=== PATIENT | male | born 1950 | race Caucasian/White ===

== ENCOUNTER 2017-01-09 14:47 | Inpatient (IN) ==
[2017-01-09] MEDS ORDERED: HALOPERIDOL 0.5 MG TABLET PO PRN (16:14)
[2017-01-09] MEDS ORDERED: HALOPERIDOL 5 MG/ML INJECTION IM PRN (16:14)
--- OUTSIDE RECORDS SUMMARY | 2017-01-09 20:59 | External Medical Summary | Referral Summary ---
:1950 Author Organization [facility] Address [address] [place] [address] Care Team Providers Name Role Phone [facility] Primary Care Physician Unavailable Encounter [facility] [id number] Date(s): 06/22/16 - 06/22/16 [facility] [address] [place] [address] Discharge Disposition: 01-Home or Self Care Attending Physician: Casimiro Oneil JR, MD Admitting Physician: Casimiro Oneil JR, MD Vital Signs No data available for this section Problem List No data available for this section Allergies, Adverse Reactions, Alerts Substance Reaction Severity Status lithium Adverse Reaction Active penicillin RASH Active Medications No data available for this section Results No data available for this section Immunizations No data available for this section Procedures No data available for this section Social History No data available for this section Assessment and Plan No data available for this section
--- NOTE | 2017-01-09 21:59 | 24 Hour Neuropsychiatic Eval ---
Date of Admission: 01/09/17 14:47 Chief complaint: Suicide ideation History of Present Illness: Patient is 66-year-old, , who was transferred from [facility] for suicide ideation with plan to overdose on his medication. Patient has history of Bipolar disorder and reports depressive symptoms in the last 2 weeks. He endorses depressed mood, decrease appetite, low energy, poor concentration and recurrent suicide ideation with plan to overdose. He was recently admitted to the CT for elevated ammonia and suicide ideation. Patient was stabilized medically prior to transfer and he was seen today to alert and oriented to time, place,person and situation. Patient reports that he stays at home all and has been really bored with his life. There is associated anxiety and always feels on the edge. He had previous suicide attempt about 15 years ago which require hospitalization at the [facility] for months. He reports past hypomanic symptoms which he describes periods of impulsively buying things he does not need with protracted insomnia. Patient reports being hospitalized during these episodes. Patient reports that he has had trials of various medications including [place]. He is currently on Abilify 15mg daily, Sertraline 200mg daily and Wellbutrin 150mg BID . Patient denies psychotic symptom and no symptom suggestive of kings or hypomania. Substance: Denies use of alcohol or any illicit drug Past Psych History: Patient was once admitted to [facility] for months. Past Medical History: Liver Cirrhosis Past Surgical History: Appendectomy and Gallbladder surgery Family History: He reports that his mother committed suicide Social History: Patient lives in apartment and retired from the [email or web address] honorably . He worked after his [employer] and currently lives in apartment alone. Patient has been divorce and has 2 daughters. Depression: Increased Anxiety, Crying Spells, Increased Fatigue, Loss of Energy , Insomnia, Difficulty Sleeping, Recurrent Thoughts of or Suicide, Difficulty Concentrating, Changes in Appetite, Hopelessness, Unhappiness Anxiety: Sense of Impending Doom [facility] Patient Stated Medical History Sleep Apnea Yes Diabetes Mellitus Type 2 Yes Cirrhosis Yes Depression Yes Family History: Mother committed suicide - Social History Smoking status: Never smoker Substance use type: does not use Alcohol intake: never (last drink was in 1974) Housing: apartment Household members: none service: Yes (retired from the [employer]) Current occupational status: retired Current residence: Apartment/Private Home Review of Systems - EENMT Eyes: Absent: blurry vision Ears: Absent: tinnitus Nose: Absent: nosebleeds - Cardiovascular Vascular: Present: pedal edema - Respiratory Respiratory: Absent: dyspnea on exertion - Gastrointestinal Gastrointestinal: Present: constipation, diarrhea - Genitourinary Genitourinary: Absent: dysuria - Musculoskeletal Musculoskeletal: Present: back pain, myalgias - Psychiatric Psychiatric: Present: abnormal sleep pattern, anhedonia, anxiety, depression, difficulty concentrating, hopelessness, suicidal ideation - Endocrine Endocrine: Absent: polyphagia - Hematologic/Lymphatic Hematologic/Lymphatic: Absent: easy bruising - Allergic/Immunologic Allergic/Immunologic: Absent: itchy eyes Mental Status Exam Vitals: Last Vital Signs Temp 97.6 F 01/09/17 20:11 Pulse 74 01/09/17 20:11 Resp 20 01/09/17 20:11 BP 115/57 01/09/17 20:11 Pulse Ox 97 01/09/17 20:11 Height: 1.88 m Weight: 138.5 kg - Mental Status Exam Muscle Strength/Tone: Weak Dressing: Casual Grooming: Poor Attitude: Cooperative Motor Activity: Retardation Eye Contact: Fair Speech: Slowed Volume: Soft Rhythm: Appropriate Rhythm Orientation: Oriented X4 Mood: Depressed Affect: Depressed Rate of Thoughts: Delayed Thought Organization: Organized Associations: Intact Abstract Reasoning: Intact, able to abstract Computation: Intact Thought Content: Helplessness, Worthlessness Perception/Psychotic: Perception Normal Language: Naming Intact Fund of Knowledge: Jose aware current events Memory: Grossly Intact Suicidal Ideation: Persistent, Plan Homicidal Ideation: None Insight: Fair Judgement: Poor Impulse Control: Poor - Laboratory Laboratory Results - last 24 hr 01/09/17 16:46 Ammonia 116 H Assessment and Plan (1) Bipolar disorder Qualifiers: Current bipolar episode type: depressed Current episode severity: severe Psychotic features: without psychotic features Current visit: Yes Status: Acute Admit Patient to [facility] Consult Medical team Obtain Ammonia level Re start home medications
[2017-01-09] MEDS: TRAMADOL 50 MG TABLET PO PRN (22:28)
[2017-01-09] MEDS: HYDROCORTISONE 1% CREAM 28.35gm TOP PRN (22:36)
[2017-01-10] MEDS: PANTOPRAZOLE 40 MG TABLET PO SCH (06:30)
[2017-01-10] MEDS ORDERED: MELOXICAM 15 MG TABLET PO SCH (09:00)
--- NOTE | 2017-01-10 09:03 | Consult Note ---
<Jaimee Gibson - Last Filed: 01/10/17 11:11> Consult Information - Data of Consult Consult date: 01/10/17 Requesting Physician: Nahid Escudero MD Primary Care Provider: Charlene Cohn MD Family Provider: Charlene Cohn MD - Consult Narrative Reason for consult: medical management of cirrhosis, encephalopathy History of present illness: The patient is a 66 y.o. [employer] who lives in [place] by himself. He was hospitalized in the [facility] January 05- due to suicidal ideation (plan to OD on medication) and elevated ammonia related to his liver cirrhosis. He has a bipolar II diagnosis and has had suicide attempts in 2011 and 2013. He has support of his daughters who both live within 2.5 blocks of him. While hospitalized at the [facility], his ammonia trended from 148-93. Basline ~80. He is taking lactulose and rifaximin. Last EGD of 2014 showed no esophageal varices. Liver ultrasound 01/05/17 showed heterogenous echotexture without significant ascites. He had echocardiogram 12/02 showing no pulmonary HTN with ejection fraction of 55-60. His blood counts were followed due to his pancytopenia thought to be secondary to hepatic cirrhosis vs medication side effects. He has chronic venous stasis and has had ongoing issues with stasis ulcer to left lower extremity. Currently having no problems. Once his medical condition was stabilized, he was transferred to the [facility] for continued psychiatric care given his ongoing suicidal ideation. PFSH Obstructive Sleep Apnea Diabetes Mellitus Type 2 Cirrhosis ([place]ANTE) Depression chronic venous stasis Surgical History: L knee surgery. appendectomy. cholecystectomy Family History: FH noncontributory. Mother committed suicide - Social History Smoking status: Never smoker Substance use type: does not use Alcohol intake frequency: does not drink Housing: house Household members: none service: Yes ([employer] [phone] (stationed in [employer] [place] [facility] [place] Current occupational status: retired Does patient use chewing tobacco?: No Current residence: Apartment/Private Home Review of Systems All systems: reviewed and no additional remarkable complaints except as stated - Constitutional Constitutional: Present: fatigue - Cardiovascular Vascular: Present: pedal edema (chronic) - Genitourinary Genitourinary: Present: nocturia, urinary urgency - Musculoskeletal Musculoskeletal: Present: back pain, myalgias - Integumentary/Breasts Integumentary: Present: change in pigmentation (left lower leg) - Psychiatric Psychiatric: Present: abnormal sleep pattern, anhedonia, anxiety, depression, difficulty concentrating, hopelessness, suicidal ideation Medications Home Medications Medication Instructions Recorded Confirmed Type Abilify 15 mg PO DAILY 01/09/17 01/09/17 History Lactulose 30 ml PO 5XD 01/09/17 01/09/17 History Meloxicam 15 mg PO DAILY 01/09/17 01/09/17 History Pantoprazole Tab [Protonix Tab] 1 tab PO ACB 01/09/17 01/09/17 History Rifaximin 550 mg PO BID 01/09/17 01/09/17 History Sertraline 200 mg PO DAILY 01/09/17 01/09/17 History Tramadol [Ultram] 50 mg PO TID PRN 01/09/17 01/09/17 History Vit D3/Folic Acid/B2/B6/B12 1,000 mg PO DAILY 01/09/17 History buPROPion HCl [Bupropion HCl Sr] 150 mg PO QMWFSU 01/09/17 01/09/17 History Allergies Allergy/AdvReac Type Severity Reaction Status Date / Time gabapentin Allergy Verified 01/09/17 18:44 lithium Allergy Verified 01/09/17 18:44 Penicillins Allergy Verified 01/09/17 18:44 ibuprofen AdvReac Verified 01/09/17 18:44 Exam Vital Signs: Temperature 97.6 F 01/09/17 20:11 Pulse Rate 74 01/09/17 20:11 Respiratory Rate 20 01/09/17 20:11 Blood Pressure 115/57 01/09/17 20:11 Pulse Oximetry 97 01/09/17 20:11 Oxygen Delivery Method Room Air Height: 1.88 m Weight: 138.346 kg Body Mass Index: 39.2 - Constitutional Present: no acute distress, well nourished, well developed - Routine HEENT Exam Head: Present: normocephalic, atraumatic Eye: Present: EOMI, conjunctivae pink ENT: Present: mucous membranes moist. Absent: dentition normal (edentulous) - Routine Neck Exam Present: supple. Absent: lymphadenopathy - Routine Respiratory Exam Present: CTA bilaterally. Absent: wheezes - Routine Cardiovascular Exam Present: RRR, S1, S2. Absent: murmur - Routine Abdominal Exam Present: soft, normoactive bowel sounds, tenderness (mild-diffuse), non distended - Routine Extremities Exam Present: edema (trace- 1+ bilateral), normal capillary refill - Routine Skin Exam Present: dry, warm, wounds (has chronic pigmentation changes and erythema to RLE. No active ulcerations noted to lower leg, but has some scabbed wounds. No sign of infection.) - Routine Neurological Exam Present: alert, oriented X3, CN II-XII intact - Routine Psychiatric Exam Present: normal affect Assessment and Plan (1) Encephalopathy Current visit: Yes Status: Acute (2) Cirrhosis of liver not due to alcohol Current visit: Yes Status: Acute acute on chronic Assessment and Plan: ASSESSMENT: acute encephalopathy hepatic cirrhosis ([place]) obstructve sleep apnea bipolar II with suicidal ideation chronic venous stasis pancytopenia secondary to cirrhosis vs meds PLAN: acute encephalopathy secondary to hepatic cirrhosis Check CBC and CMP today. hepatic cirrhosis with elevated ammonia Ammonia level is 116 today. He came to us on lactulose and rifaximin. Will discuss with attending to determine if he needs to continue on both meds. Will follow LFT's Obstructive Sleep Apnea Uses CPAP at home. Will monitor. Patient may require O2 at night if he becomes hypoxic Bipolar II with suicidal ideation Psych to follow. May need to discuss reducing/changing sertraline as use is not recommended in moderate to severe liver impairment chronic venous stasis Wound team has been consulted for evaluation Consider compression stockings if needed pancytopenia secondary to cirrhosis vs meds Will monitor with CBC Encourage patient to participate in unit activities and provide a safe environment. The hospitalist team will continue to follow patient for medical management during patient's stay At time of discharge, medical care will return to patients primary care provider at the [facility]. Hospital Course Summary Disclaimer: The visit summary below is not to be considered part of the above Progress Note. Sepsis Assessment - Evaluation Sepsis screening result: No Definite Risk <Perla Benavides - Last Filed: 01/10/17 21:23> Consult Information - Data of Consult Requesting Physician: Nahid Escudero MD Primary Care Provider: Charlene Cohn MD Family Provider: Charlene Cohn MD [facility] Patient Stated Medical History Sleep Apnea Yes Diabetes Mellitus Type 2 Yes Cirrhosis Yes Depression Yes Exam Vital Signs: Temperature 97.3 F 01/10/17 19:51 Pulse Rate 61 01/10/17 19:51 Respiratory Rate 22 01/10/17 19:51 Blood Pressure 123/47 01/10/17 19:51 Pulse Oximetry 99 01/10/17 19:51 Oxygen Delivery Method Room Air Height: 1.88 m Weight: 138.346 kg Results - Labs CBC & Chem 7: 01/10/17 13:19 01/10/17 11:57 Assessment and Plan (1) Bipolar disorder Problem details: severe depression/suicidal ideation Current visit: Yes Status: Acute (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 I reviewed the chart, the patient's history, and the [facility]ERING [facility]/PA's documented findings as above. We discussed and formulated the assessment and plan as above with additions as below: Mr. Arndt was transferred from the [facility] as noted. He reports occasional lightheadedness when standing which he attributes to chronic lactulose use. He reports having a couple of bowel movements daily and abdominal bloating which is maybe a little greater today than normally. He denied dyspnea and reports his appetite is very good. Patient is slightly withdrawn but responds appropriately to questions. He is oriented. No scleral icterus present, minor right facial droop present but appears to be positional as when patient holds his head upright no droop evident. Extraocular muscles intact, tongue midline. No tremor present, motor tone normal. Power within normal limits proximally/distally upper and lower extremities. Sensation intact to light touch 4 extremities. Elevated ammonia level noted-will clarify with PCP while level runs chronically but patient is not overtly encephalopathic. Monitor bowel movements-should be having approximately 3 bowel movements daily. Continue rifaximin and lactulose. Will review outpatient labs to determine when A1c last evaluated. Provide safe environment for patient while psychiatric medications modified. Hospital Course Summary Disclaimer: The visit summary below is not to be considered part of the above Progress Note. Addendum entered and electronically signed by Jaimee Gibson PA 01/10/17 14:17 : Reviewed labs obtained today. Patient continues to be pancytopenic. The calculated ANC is 992 - consistent with moderate neutropenia. WBC on 01/06 was 1.2, and on 01/07 was on 1.1 . Did review old records. This is a chronic process for this patient. Patient sees Dr. Aakash Armendariz. Last visit was 09/19/16.
[2017-01-10] MEDS: ARIPiprazole 15 MG TABLET PO SCH (10:45)
[2017-01-10] MEDS: LACTULOSE 20 GM/30 ML ORAL LIQUID PO SCH ×5 (10:45→20:36)
[2017-01-10] MEDS: SERTRALINE 100 MG TABLET PO SCH (10:45)
[2017-01-10] MEDS: RIFAXIMIN 550 MG TABLET PO SCH ×2 (10:46→20:37)
[2017-01-10 10:52] VITALS: BMI 39.2
[2017-01-10] MEDS ORDERED: BuPROPion SR 150mg (12HR) TABLET PO SCH (12:00)
--- NOTE | 2017-01-10 21:30 | Neuropsych Progress Note ---
[place] Subjective Date: 01/10/17 - Sujective/Severity of Illness Medications: Aripiprazole (Abilify) 15 mg PO DAILY [facility] Last Admin: 01/10/17 10:45 Dose: 15 mg Bupropion HCl (Wellbutrin Sr) 150 mg PO QMWFSU [facility] Last Admin: 01/10/17 11:50 Dose: 150 mg Haloperidol (Haldol) 0.5 mg PO Q6H PRN PRN Reason: Extreme agitation Haloperidol Lactate (Haldol) 0.5 mg IM Q6H PRN PRN Reason: Extreme agitation Hydrocortisone (Cortizone-10 Cream) 1 applic TOP TID PRN PRN Reason: Rash Last Admin: 01/09/17 22:36 Dose: 1 applic Lactulose (Lactulose) 20 gm PO 5XD [facility] Last Admin: 01/10/17 20:36 Dose: 20 gm Lorazepam (Ativan) 0.5 mg PO Q6H PRN PRN Reason: Extreme agitation Lorazepam (Ativan Inj) 0.5 mg IM Q6H PRN PRN Reason: Extreme agitation Meloxicam (Mobic) 15 mg PO WB [facility] Pantoprazole Sodium (Protonix Tab) 40 mg PO ACB [facility] Last Admin: 01/10/17 06:30 Dose: 40 mg Rifaximin (Xifaxan) 550 mg PO BID [facility] Last Admin: 01/10/17 20:37 Dose: 550 mg Sertraline HCl (Zoloft) 200 mg PO DAILY [facility] Last Admin: 01/10/17 10:45 Dose: 200 mg Tramadol HCl (Ultram) 50 mg PO TID PRN PRN Reason: Moderate pain Last Admin: 01/09/17 22:28 Dose: 50 mg Subjective: Patient is a 66-year-old, who has history of Bipolar 2 disorder and liver cirrhosis . [facility] with suicide ideation with plan to overdose on his medication. His medications on presentation included Abilify 15mg, Wellbutrin 150mg. Patient seen today and he reports that he continues to be depressed and feels helpless. He was able to get some sleep yesterday but continue to feel mentally tired. He denies suicide ideation, intent or plan to hurt himself and he feels safe on the unit. Sleep: 6 hours appetite: good Medication compliance: good. Adverse effect: none Visit: Patient was visited by the case management specialist from the [facility] who reported to staff that patient's apartment was filthy and he was supposed to have enough income for someone to clean his apartment. The plans to look into this and ascertain if there needs to be a report to [facility]. Start Time: 18:40 Stop Time: 19:00 Mental Status Exam Vitals: Last Vital Signs Temp 97.3 F 01/10/17 19:51 Pulse 61 01/10/17 19:51 Resp 22 01/10/17 19:51 BP 123/47 01/10/17 19:51 Pulse Ox 99 01/10/17 19:51 Height: 1.88 m Weight: 138.346 kg - Mental Status Exam Muscle Strength/Tone: Weak Dressing: Casual Grooming: Poor Attitude: Cooperative Motor Activity: Retardation Eye Contact: Fair Speech: Slowed Volume: Soft Rhythm: Appropriate Rhythm Orientation: Oriented X4 Mood: Depressed Rate of Thoughts: Delayed Thought Organization: Organized Associations: Intact Abstract Reasoning: Intact, able to abstract Computation: Intact Thought Content: Helplessness, Worthlessness Perception/Psychotic: Perception Normal Language: Naming Intact Fund of Knowledge: Jose aware current events Memory: Grossly Intact Suicidal Ideation: Intermittent Homicidal Ideation: None Insight: Fair Judgement: Poor Impulse Control: Poor - Laboratory Result Diagrams: 01/10/17 13:19 01/10/17 11:57 Laboratory Results - last 24 hr 01/10/17 01/10/17 11:57 13:19 WBC 1.6 L* RBC 3.68 L Hgb 10.6 L Hct 34.4 L MCV 93.5 MCH 28.8 MCHC 30.8 L RDW Std Deviation 61.4 H Plt Count 40 L MPV 11.1 Immature Gran % (Auto) Not performed Neut % (Auto) Not performed Lymph % (Auto) Not performed [place] % (Auto) Not performed Eos % (Auto) Not performed Baso % (Auto) Not performed Neut # Not performed Lymph # Not performed [place] # Not performed Eos # Not performed Baso # Not performed Abs Immat Gran (auto) Not performed Neutrophils % (Manual) 62.0 Lymphocytes % (Manual) 36.0 Eosinophils % (Manual) 2.0 Neutrophils # (Manual) 1.0 L Lymphocytes # (Manual) 0.6 L Eosinophils # (Manual) 0.0 RBC Morph Comment Normal Turbidity < 20 Sodium 145 H Potassium 4.0 Chloride 111 H Carbon Dioxide 25 Anion Gap 9 BUN 18.0 Creatinine 1.0 GFR Calculation 75 BUN/Creatinine Ratio 18 Glucose 161 H Calculated Osmolality 284 H Calcium 9.7 Total Bilirubin 1.30 Icterus Index < 2 AST 45 ALT 38 Alkaline Phosphatase 84 Total Protein 6.6 Albumin 3.8 Globulin 2.8 Albumin/Globulin Ratio 1.4 Specimen Hemolysis 30 H Specimen Comment Lab to recollect Tests Not Done H63 - cbc Reason Tests Not Done Clotted specimen Assessment and Plan (1) Bipolar disorder Qualifiers: Qualified Code(s): F31.4 - Bipolar disorder, current episode depressed, severe, without psychotic features Problem details: severe depression/suicidal ideation Current visit: Yes Status: Acute Hospital Course Summary Disclaimer: The visit summary below is not to be considered part of the above Progress Note. 1. Increase dose of Bupropion to target low energy and poor motivation. Will consider adding Lamotrogine to his medication if he continues to be symptomatic
[2017-01-11] MEDS: LORazepam 0.5 MG TABLET PO PRN (01:51)
[2017-01-11] MEDS: PANTOPRAZOLE 40 MG TABLET PO SCH (08:24)
[2017-01-11] MEDS: MELOXICAM 15 MG TABLET PO SCH (08:25)
[2017-01-11] MEDS: ARIPiprazole 15 MG TABLET PO SCH (08:25)
[2017-01-11] MEDS: LACTULOSE 20 GM/30 ML ORAL LIQUID PO SCH ×5 (08:25→20:11)
[2017-01-11] MEDS: SERTRALINE 100 MG TABLET PO SCH (08:25)
[2017-01-11] MEDS: RIFAXIMIN 550 MG TABLET PO SCH ×2 (08:38→20:14)
--- NOTE | 2017-01-11 09:26 | Wound Care Progress Note ---
Wound Center Progress Note: Saw pt on 01/10/17. Left zamarripa was of concern, at this time redness, appears pt has scratched it. No open areas, suggested Antifungal cream and A & D.
[2017-01-11] MEDS ORDERED: BuPROPion SR 150mg (12HR) TABLET PO SCH (12:00)
--- NOTE | 2017-01-11 15:07 | Progress Note ---
Subjective: Patient seen in follow-up today in the day room. Patient reports overall he feels he is doing okay. He reports he "feels safe." States he still has a lot of intrusive thoughts. He's been having good bowel movements. He has no physical complaints. Objective Vital signs: Temperature 97.0 F 01/11/17 08:00 Pulse Rate 66 01/11/17 08:00 Respiratory Rate 20 01/11/17 08:00 Blood Pressure 129/63 01/11/17 08:00 Pulse Oximetry 100 01/11/17 08:00 Oxygen Delivery Method Room Air Body Mass Index: 39.2 - Constitutional Present: no acute distress, well nourished, well developed - Routine HEENT Exam ENT: Present: mucous membranes moist - Routine Respiratory Exam Present: CTA bilaterally. Absent: wheezes - Routine Cardiovascular Exam Present: RRR, S1, S2. Absent: murmur - Routine Abdominal Exam Present: soft, normoactive bowel sounds, tenderness (right upper quadrant-mild) , non distended - Routine Extremities Exam Present: no edema, normal capillary refill - Routine Skin Exam Present: dry, warm - Routine Neurological Exam Present: alert, CN II-XII intact, moving all extremities, normal tone, normal speech. Absent: motor deficit, altered mental status, asterixis - Routine Lymphatic Exam Lymphatic: Absent: adenopathy - Routine Psychiatric Exam Present: normal affect, cooperative Results - Labs CBC & Chem 7: 01/10/17 13:19 01/10/17 11:57 Labs: Ammonia 105 today, down from 116 on 01/09/17. Assessment and Plan (1) Bipolar disorder Problem details: severe depression/suicidal ideation Current visit: Yes Status: Acute (2) Cirrhosis of liver not due to alcohol Current visit: Yes Status: Chronic Assessment and Plan: Assessment: Cirrhosis Pancytopenia-chronic Elevated ammonia level Diabetes mellitus type 2-diet controlled Bipolar Depression-with suicidal ideation Obstructive sleep apnea-uses CPAP Chronic venous stasis Plan: Elevated ammonia level noted-Dr. Benavides is contacting PCP to see if this is chronic for him. Will also check for last A1C result. Continue to monitor bowel movements-should be having approximately 3 bowel movements daily. Continue rifaximin and lactulose. CBC and CMP tomorrow to follow pancytopenia, renal and liver function Provide safe environment for patient while psychiatric medications modified. Sepsis Assessment - Evaluation Sepsis screening result: No Definite Risk Hospital Course Summary Disclaimer: The visit summary below is not to be considered part of the above Progress Note. Hospital Course: 01/10/17 acute encephalopathy secondary to hepatic cirrhosis Check CBC and CMP today. hepatic cirrhosis with elevated ammonia Ammonia level is 116 today. He came to us on lactulose and rifaximin. Will discuss with attending to determine if he needs to continue on both meds. Will follow LFT's Obstructive Sleep Apnea Uses CPAP at home. Will monitor. Patient may require O2 at night if he becomes hypoxic Bipolar II with suicidal ideation Psych to follow. May need to discuss reducing/changing sertraline as use is not recommended in moderate to severe liver impairment chronic venous stasis Wound team has been consulted for evaluation Consider compression stockings if needed pancytopenia secondary to cirrhosis vs meds Will monitor with CBC At time of discharge, medical care will return to patients primary care provider at the [facility] 01/11/17 15:17 Continue to monitor bowel movements-should be having approximately 3 bowel movements daily. Continue rifaximin and lactulose. CBC and CMP tomorrow to follow pancytopenia, renal and liver function ammonia level improved but still elevated
--- NOTE | 2017-01-11 19:13 | Neuropsych Progress Note ---
[facility] Subjective Date: 01/11/17 - Sujective/Severity of Illness Medications: Aripiprazole (Abilify) 15 mg PO DAILY [facility] Last Admin: 01/11/17 08:25 Dose: 15 mg Bupropion HCl (Wellbutrin Sr) 300 mg PO [id number]@1200 [facility] Haloperidol (Haldol) 0.5 mg PO Q6H PRN PRN Reason: Extreme agitation Haloperidol Lactate (Haldol) 0.5 mg IM Q6H PRN PRN Reason: Extreme agitation Hydrocortisone (Cortizone-10 Cream) 1 applic TOP TID PRN PRN Reason: Rash Last Admin: 01/09/17 22:36 Dose: 1 applic Lactulose (Lactulose) 20 gm PO 5XD [facility] Last Admin: 01/11/17 17:40 Dose: 20 gm Lorazepam (Ativan) 0.5 mg PO Q6H PRN PRN Reason: Extreme agitation Last Admin: 01/11/17 01:51 Dose: 0.5 mg Lorazepam (Ativan Inj) 0.5 mg IM Q6H PRN PRN Reason: Extreme agitation Meloxicam (Mobic) 15 mg PO WB [facility] Last Admin: 01/11/17 08:25 Dose: 15 mg Pantoprazole Sodium (Protonix Tab) 40 mg PO ACB [facility] Last Admin: 01/11/17 08:24 Dose: 40 mg Rifaximin (Xifaxan) 550 mg PO BID [facility] Last Admin: 01/11/17 08:38 Dose: 550 mg Sertraline HCl (Zoloft) 200 mg PO DAILY [facility] Last Admin: 01/11/17 08:25 Dose: 200 mg Tramadol HCl (Ultram) 50 mg PO TID PRN PRN Reason: Moderate pain Last Admin: 01/09/17 22:28 Dose: 50 mg Subjective: Pt seen and chart examined. Nursing reports pt is doing well. Sleeping well and has a good appetite. No behaviors noted. On face to face the pt states he is doing a little better. He reports his mood is improved and he states "I feel safe here". He reports he is tolerating his medication well. He reports some morbid thoughts at times but denies any S/I. Denies pain. Start Time: 18:30 Stop Time: 18:45 Mental Status Exam Vitals: Last Vital Signs Temp 96.8 F 01/11/17 16:00 Pulse 66 01/11/17 16:00 Resp 20 01/11/17 16:00 BP 127/64 01/11/17 16:00 Pulse Ox 100 01/11/17 16:00 Height: 1.88 m Weight: 138.346 kg - Mental Status Exam Muscle Strength/Tone: Weak Dressing: Casual Grooming: Poor Attitude: Cooperative Motor Activity: Retardation Eye Contact: Fair Speech: Slowed Volume: Soft Rhythm: Appropriate Rhythm Orientation: Oriented X4 Mood: Depressed Rate of Thoughts: Delayed Thought Organization: Organized Associations: Intact Abstract Reasoning: Intact, able to abstract Computation: Intact Thought Content: Helplessness, Worthlessness Perception/Psychotic: Perception Normal Language: Naming Intact Fund of Knowledge: Jose aware current events Memory: Grossly Intact Suicidal Ideation: Denies Homicidal Ideation: None Insight: Fair Judgement: Poor Impulse Control: Poor - Laboratory Result Diagrams: 01/10/17 13:19 01/10/17 11:57 Laboratory Results - last 24 hr 01/11/17 04:41 Ammonia 105 H Assessment and Plan (1) Bipolar disorder Qualifiers: Current bipolar episode type: depressed Current episode severity: severe Psychotic features: without psychotic features Problem details: severe depression/suicidal ideation Current visit: Yes Status: Acute Hospital Course Summary Disclaimer: The visit summary below is not to be considered part of the above Progress Note. Hospital Course: 01/10/17 acute encephalopathy secondary to hepatic cirrhosis Check CBC and CMP today. hepatic cirrhosis with elevated ammonia Ammonia level is 116 today. He came to us on lactulose and rifaximin. Will discuss with attending to determine if he needs to continue on both meds. Will follow LFT's Obstructive Sleep Apnea Uses CPAP at home. Will monitor. Patient may require O2 at night if he becomes hypoxic Bipolar II with suicidal ideation Psych to follow. May need to discuss reducing/changing sertraline as use is not recommended in moderate to severe liver impairment chronic venous stasis Wound team has been consulted for evaluation Consider compression stockings if needed pancytopenia secondary to cirrhosis vs meds Will monitor with CBC At time of discharge, medical care will return to patients primary care provider at the [facility] 01/11/17 15:17 Continue to monitor bowel movements-should be having approximately 3 bowel movements daily. Continue rifaximin and lactulose. CBC and CMP tomorrow to follow pancytopenia, renal and liver function ammonia level improved but still elevated 01/11/17 19:13 Continue current care
[2017-01-11] MEDS: TRAMADOL 50 MG TABLET PO PRN (20:30)
[2017-01-12] MEDS: HYDROCORTISONE 1% CREAM 28.35gm TOP PRN (00:01)
[2017-01-12] MEDS: TRAMADOL 50 MG TABLET PO PRN ×2 (02:58→17:24)
[2017-01-12] MEDS: PANTOPRAZOLE 40 MG TABLET PO SCH (06:09)
[2017-01-12] MEDS: MELOXICAM 15 MG TABLET PO SCH (08:33)
[2017-01-12] MEDS: SERTRALINE 100 MG TABLET PO SCH (08:33)
[2017-01-12] MEDS: RIFAXIMIN 550 MG TABLET PO SCH ×2 (08:33→20:16)
[2017-01-12] MEDS: LACTULOSE 20 GM/30 ML ORAL LIQUID PO SCH ×5 (08:34→20:16)
[2017-01-12] MEDS: ARIPiprazole 15 MG TABLET PO SCH (08:34)
--- NOTE | 2017-01-12 10:02 | Progress Note ---
<Fang Giron V - Last Filed: 01/12/17 09:59> Subjective: Mr Arndt is seen today in follow up while eating breakfast. He is alert and denies having any pain or shortness of breath. Denies GI complaints and he is voiding without difficulty. Bowels moved today. Afebrile and vital sings are normal Objective Vital signs: Temperature 96.9 F 01/12/17 07:16 Pulse Rate 60 01/12/17 07:16 Respiratory Rate 18 01/12/17 07:16 Blood Pressure 119/56 01/12/17 07:16 Pulse Oximetry 100 01/12/17 07:16 Oxygen Delivery Method Room Air Body Mass Index: 39.2 - Constitutional Present: no acute distress, well nourished, well developed - Routine HEENT Exam Eye: Present: EOMI, PERRL ENT: Present: mucous membranes moist, dentition normal - Routine Respiratory Exam Present: CTA bilaterally. Absent: wheezes - Routine Cardiovascular Exam Present: RRR, S1, S2. Absent: murmur - Routine Abdominal Exam Present: soft, normoactive bowel sounds, non distended. 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 Patient continues to have chronic pancytopenia. Monitor for evidence of infection, fever, tachycardia, or other concerning symptoms. Patient has been afebrile and vital signs are normal. Continue rifaximin and lactulose for chronic liver cirrhosis We'll recheck CBC and BMP periodically, next on 01/15 Provide safe environment for patient while psychiatric medications modified. Sepsis Assessment - Evaluation Sepsis screening result: No Definite Risk Hospital Course Summary Disclaimer: The visit summary below is not to be considered part of the above Progress Note. Hospital Course: 01/10/17 acute encephalopathy secondary to hepatic cirrhosis Check CBC and CMP today. hepatic cirrhosis with elevated ammonia Ammonia level is 116 today. He came to us on lactulose and rifaximin. Will discuss with attending to determine if he needs to continue on both meds. Will follow LFT's Obstructive Sleep Apnea Uses CPAP at home. Will monitor. Patient may require O2 at night if he becomes hypoxic Bipolar II with suicidal ideation Psych to follow. May need to discuss reducing/changing sertraline as use is not recommended in moderate to severe liver impairment chronic venous stasis Wound team has been consulted for evaluation Consider compression stockings if needed pancytopenia secondary to cirrhosis vs meds Will monitor with CBC At time of discharge, medical care will return to patients primary care provider at the [facility] 01/11/17 15:17 Continue to monitor bowel movements-should be having approximately 3 bowel movements daily. Continue rifaximin and lactulose. CBC and CMP tomorrow to follow pancytopenia, renal and liver function ammonia level improved but still elevated 01/11/17 19:13 Continue current care <Perla Benavides - Last Filed: 01/12/17 20:53> Objective Vital signs: Temperature 97.0 F 01/12/17 19:24 Pulse Rate 62 01/12/17 19:24 Respiratory Rate 20 01/12/17 19:24 Blood Pressure 117/58 01/12/17 19:24 Pulse Oximetry 100 01/12/17 19:24 Oxygen Delivery Method Room Air Results - Labs CBC & Chem 7: 01/12/17 05:04 01/12/17 05:04 Assessment and Plan (1) Bipolar disorder Problem details: severe depression/suicidal ideation Current visit: Yes Status: Acute (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 I reviewed the chart, the patient's history, and the [employer] ADMINISTRATOR/PA's documented findings as above. We discussed and formulated the assessment and plan as above with additions as below: Mr. Arndt was resting comfortably in the day room when seen. He was a little drowsy but indicated no concerns. He reported that his white count is generally low and usually about 3K. Review of transfer records indicate white counts have been as low as 1.1 in the past couple of months and is often under 2K. The patient was a little sedated as he was napping immediately before I arrived but otherwise was in no distress. Respirations nonlabored, responds to questions appropriately. Pancytopenia present, with marked depression of white count may need to reconsider sertraline use. No need to monitor ammonia levels repetitively. Should patient become clinically encephalopathic would increase lactulose, consider repeat ammonia level but not likely to be clinically helpful given chronic elevation. Hospital Course Summary Disclaimer: The visit summary below is not to be considered part of the above Progress Note.
[2017-01-12] MEDS: BuPROPion SR 150mg (12HR) TABLET PO SCH (11:56)
--- NOTE | 2017-01-12 17:24 | Neuropsych Progress Note ---
[place] Subjective Date: 01/12/17 - Sujective/Severity of Illness Medications: Aripiprazole (Abilify) 15 mg PO DAILY [facility] Last Admin: 01/12/17 08:34 Dose: 15 mg Bupropion HCl (Wellbutrin Sr) 300 mg PO [id number]@1200 [facility] Last Admin: 01/12/17 11:56 Dose: 300 mg Haloperidol (Haldol) 0.5 mg PO Q6H PRN PRN Reason: Extreme agitation Haloperidol Lactate (Haldol) 0.5 mg IM Q6H PRN PRN Reason: Extreme agitation Hydrocortisone (Cortizone-10 Cream) 1 applic TOP TID PRN PRN Reason: Rash Last Admin: 01/12/17 00:01 Dose: 1 applic Hydroxyzine HCl (Atarax) 50 mg PO HS [facility]PL[facility] Lactulose (Lactulose) 20 gm PO 5XD [facility] Last Admin: 01/12/17 14:52 Dose: 20 gm Lorazepam (Ativan) 0.5 mg PO Q6H PRN PRN Reason: Extreme agitation Last Admin: 01/11/17 01:51 Dose: 0.5 mg Lorazepam (Ativan Inj) 0.5 mg IM Q6H PRN PRN Reason: Extreme agitation Meloxicam (Mobic) 15 mg PO WB [facility] Last Admin: 01/12/17 08:33 Dose: 15 mg Pantoprazole Sodium (Protonix Tab) 40 mg PO ACB [facility] Last Admin: 01/12/17 06:09 Dose: 40 mg Rifaximin (Xifaxan) 550 mg PO BID [facility] Last Admin: 01/12/17 08:33 Dose: 550 mg Sertraline HCl (Zoloft) 200 mg PO DAILY [facility] Last Admin: 01/12/17 08:33 Dose: 200 mg Tramadol HCl (Ultram) 50 mg PO TID PRN PRN Reason: Moderate pain Last Admin: 01/12/17 02:58 Dose: 50 mg Subjective: Pt seen and chart examined. Nursing reports pt is doing well. Poor sleep last night. Eating well and no behaviors noted. Pt states he feels safe here but remains depressed and continues to have S/I at times. He reports he was not able to sleep last night due to racing thoughts. He reports tolerating his medication well Start Time: 16:45 Stop Time: 17:00 Mental Status Exam Vitals: Last Vital Signs Temp 96.9 F 01/12/17 16:00 Pulse 62 01/12/17 16:00 Resp 18 01/12/17 16:00 BP 115/56 01/12/17 16:00 Pulse Ox 98 01/12/17 16:00 Height: 1.88 m Weight: 138.346 kg - Mental Status Exam Muscle Strength/Tone: Weak Dressing: Casual Grooming: Poor Attitude: Cooperative Motor Activity: Retardation Eye Contact: Fair Speech: Slowed Volume: Soft Rhythm: Appropriate Rhythm Orientation: Oriented X4 Mood: Depressed Rate of Thoughts: Delayed Thought Organization: Organized Associations: Intact Abstract Reasoning: Intact, able to abstract Computation: Intact Thought Content: Helplessness, Worthlessness Perception/Psychotic: Perception Normal Language: Naming Intact Fund of Knowledge: Jose aware current events Memory: Grossly Intact Suicidal Ideation: Denies Homicidal Ideation: None Insight: Fair Judgement: Poor Impulse Control: Poor - Laboratory Result Diagrams: 01/12/17 05:04 01/12/17 05:04 Laboratory Results - last 24 hr 01/12/17 01/12/17 05:04 05:04 WBC 1.3 L* RBC 3.31 L Hgb 9.5 L Hct 30.3 L D MCV 91.5 MCH 28.7 MCHC 31.4 RDW Std Deviation 60.5 H Plt Count 44 L MPV 11.4 Immature Gran % (Auto) Not performed Neut % (Auto) Not performed Lymph % (Auto) Not performed Thomas % (Auto) Not performed Eos % (Auto) Not performed Baso % (Auto) Not performed Neut # Not performed Lymph # Not performed Thomas # Not performed Eos # Not performed Baso # Not performed Abs Immat Gran (auto) Not performed Neutrophils % (Manual) 70.0 H Lymphocytes % (Manual) 28.0 Eosinophils % (Manual) 2.0 Neutrophils # (Manual) 0.9 L Lymphocytes # (Manual) 0.4 L Eosinophils # (Manual) 0.0 Poikilocytosis 2+ Anisocytosis 2+ Tear Drop Cells 1+ Ovalocytes 2+ RBC Morph Comment Abnormal Turbidity < 20 Sodium 144 Potassium 4.4 Chloride 113 H Carbon Dioxide 25 Anion Gap 6 BUN 19.0 Creatinine 1.0 GFR Calculation 75 BUN/Creatinine Ratio 19 Glucose 109 Calculated Osmolality 280 Calcium 9.3 Total Bilirubin 1.00 Icterus Index < 2 AST 41 ALT 48 Alkaline Phosphatase 95 Total Protein 5.8 L Albumin 3.2 L Globulin 2.6 Albumin/Globulin Ratio 1.2 Specimen Hemolysis 32 H Assessment and Plan (1) Bipolar disorder Qualifiers: Current bipolar episode type: depressed Current episode severity: severe Psychotic features: without psychotic features Problem details: severe depression/suicidal ideation Current visit: Yes Status: Acute Hospital Course Summary Disclaimer: The visit summary below is not to be considered part of the above Progress Note. Hospital Course: 01/10/17 acute encephalopathy secondary to hepatic cirrhosis Check CBC and CMP today. hepatic cirrhosis with elevated ammonia Ammonia level is 116 today. He came to us on lactulose and rifaximin. Will discuss with attending to determine if he needs to continue on both meds. Will follow LFT's Obstructive Sleep Apnea Uses CPAP at home. Will monitor. Patient may require O2 at night if he becomes hypoxic Bipolar II with suicidal ideation Psych to follow. May need to discuss reducing/changing sertraline as use is not recommended in moderate to severe liver impairment chronic venous stasis Wound team has been consulted for evaluation Consider compression stockings if needed pancytopenia secondary to cirrhosis vs meds Will monitor with CBC At time of discharge, medical care will return to patients primary care provider at the [facility] 01/11/17 15:17 Continue to monitor bowel movements-should be having approximately 3 bowel movements daily. Continue rifaximin and lactulose. CBC and CMP tomorrow to follow pancytopenia, renal and liver function ammonia level improved but still elevated 01/11/17 19:13 Continue current care 01/12/17 17:23 Hydroxyzine 50mg PO QHS
[2017-01-12] MEDS: HydrOXYzine 50 MG TABLET PO SCH ×2 (20:16→23:41)
[2017-01-13] MEDS: PANTOPRAZOLE 40 MG TABLET PO SCH (05:44)
[2017-01-13] MEDS: LACTULOSE 20 GM/30 ML ORAL LIQUID PO SCH ×5 (08:33→20:21)
[2017-01-13] MEDS: ARIPiprazole 15 MG TABLET PO SCH (08:33)
[2017-01-13] MEDS: RIFAXIMIN 550 MG TABLET PO SCH ×2 (08:33→20:20)
[2017-01-13] MEDS: MELOXICAM 15 MG TABLET PO SCH (08:34)
[2017-01-13] MEDS: SERTRALINE 100 MG TABLET PO SCH (08:34)
--- NOTE | 2017-01-13 11:16 | Neuropsych Progress Note ---
[facility] Subjective Date: 01/13/17 - Sujective/Severity of Illness Medications: Aripiprazole (Abilify) 15 mg PO DAILY [facility] Last Admin: 01/13/17 08:33 Dose: 15 mg Bupropion HCl (Wellbutrin Sr) 300 mg PO [id number]@1200 [facility] Last Admin: 01/12/17 11:56 Dose: 300 mg Haloperidol (Haldol) 0.5 mg PO Q6H PRN PRN Reason: Extreme agitation Haloperidol Lactate (Haldol) 0.5 mg IM Q6H PRN PRN Reason: Extreme agitation Hydrocortisone (Cortizone-10 Cream) 1 applic TOP TID PRN PRN Reason: Rash Last Admin: 01/12/17 00:01 Dose: 1 applic Hydroxyzine HCl (Atarax) 50 mg PO HS [facility] Last Admin: 01/12/17 23:41 Dose: Not Given Lactulose (Lactulose) 20 gm PO 5XD [facility] Last Admin: 01/13/17 08:33 Dose: 20 gm Lorazepam (Ativan) 0.5 mg PO Q6H PRN PRN Reason: Extreme agitation Last Admin: 01/11/17 01:51 Dose: 0.5 mg Lorazepam (Ativan Inj) 0.5 mg IM Q6H PRN PRN Reason: Extreme agitation Meloxicam (Mobic) 15 mg PO WB [facility] Last Admin: 01/13/17 08:34 Dose: 15 mg Pantoprazole Sodium (Protonix Tab) 40 mg PO ACB [facility] Last Admin: 01/13/17 05:44 Dose: 40 mg Rifaximin (Xifaxan) 550 mg PO BID [facility] Last Admin: 01/13/17 08:33 Dose: 550 mg Sertraline HCl (Zoloft) 200 mg PO DAILY [facility] Last Admin: 01/13/17 08:34 Dose: 200 mg Tramadol HCl (Ultram) 50 mg PO TID PRN PRN Reason: Moderate pain Last Admin: 01/12/17 17:24 Dose: 50 mg Subjective: Pt seen and chart examined. Nursing reports pt is doing well. PT did not sleep well last night and has been tired today. Pt is eating well and interacts appropriately with staff and peers. On face to face the pt states he feels a little better. His mood is improved. He states he was able to fall asleep but not stay asleep. He denies any S/I at this time. Tolerating meds Start Time: 10:30 Stop Time: 10:45 Mental Status Exam Vitals: Last Vital Signs Temp 96.8 F 01/13/17 08:00 Pulse 68 01/13/17 08:00 Resp 20 01/13/17 08:00 BP 125/63 01/13/17 11:08 Pulse Ox 100 01/13/17 08:00 Height: 1.88 m Weight: 138.346 kg - Mental Status Exam Muscle Strength/Tone: Weak Dressing: Casual Grooming: Poor Attitude: Cooperative Motor Activity: Retardation Eye Contact: Fair Speech: Slowed Volume: Soft Rhythm: Appropriate Rhythm Orientation: Oriented X4 Mood: Depressed Rate of Thoughts: Delayed Thought Organization: Organized Associations: Intact Abstract Reasoning: Intact, able to abstract Computation: Intact Thought Content: Helplessness, Worthlessness Perception/Psychotic: Perception Normal Language: Naming Intact Fund of Knowledge: Jose aware current events Memory: Grossly Intact Suicidal Ideation: Denies Homicidal Ideation: None Insight: Fair Judgement: Poor Impulse Control: Poor - Laboratory Result Diagrams: 01/12/17 05:04 01/12/17 05:04 Assessment and Plan (1) Bipolar disorder Qualifiers: Current bipolar episode type: depressed Current episode severity: severe Psychotic features: without psychotic features Problem details: severe depression/suicidal ideation Current visit: Yes Status: Acute Hospital Course Summary Disclaimer: The visit summary below is not to be considered part of the above Progress Note. Hospital Course: 01/10/17 acute encephalopathy secondary to hepatic cirrhosis Check CBC and CMP today. hepatic cirrhosis with elevated ammonia Ammonia level is 116 today. He came to us on lactulose and rifaximin. Will discuss with attending to determine if he needs to continue on both meds. Will follow LFT's Obstructive Sleep Apnea Uses CPAP at home. Will monitor. Patient may require O2 at night if he becomes hypoxic Bipolar II with suicidal ideation Psych to follow. May need to discuss reducing/changing sertraline as use is not recommended in moderate to severe liver impairment chronic venous stasis Wound team has been consulted for evaluation Consider compression stockings if needed pancytopenia secondary to cirrhosis vs meds Will monitor with CBC At time of discharge, medical care will return to patients primary care provider at the [facility] 01/11/17 15:17 Continue to monitor bowel movements-should be having approximately 3 bowel movements daily. Continue rifaximin and lactulose. CBC and CMP tomorrow to follow pancytopenia, renal and liver function ammonia level improved but still elevated 01/11/17 19:13 Continue current care 01/12/17 17:23 Hydroxyzine 50mg PO QHS 01/13/17 11:16 Increase Hydroxyzine to 100mg PO QHS
[2017-01-13] MEDS: HydrOXYzine 50 MG TABLET PO SCH (22:01)
[2017-01-14] MEDS: PANTOPRAZOLE 40 MG TABLET PO SCH (05:42)
[2017-01-14] MEDS: MELOXICAM 15 MG TABLET PO SCH (09:51)
[2017-01-14] MEDS: LACTULOSE 20 GM/30 ML ORAL LIQUID PO SCH ×5 (09:52→20:08)
[2017-01-14] MEDS: RIFAXIMIN 550 MG TABLET PO SCH ×2 (09:52→20:08)
[2017-01-14] MEDS: SERTRALINE 100 MG TABLET PO SCH (09:52)
--- NOTE | 2017-01-14 11:24 | Neuropsych Progress Note ---
[place] Subjective Date: 01/14/17 - Sujective/Severity of Illness Medications: Bupropion HCl (Wellbutrin Sr) 300 mg PO SuMoWeFr@1200 [facility] Last Admin: 01/12/17 11:56 Dose: 300 mg Haloperidol (Haldol) 0.5 mg PO Q6H PRN PRN Reason: Extreme agitation Haloperidol Lactate (Haldol) 0.5 mg IM Q6H PRN PRN Reason: Extreme agitation Hydrocortisone (Cortizone-10 Cream) 1 applic TOP TID PRN PRN Reason: Rash Last Admin: 01/12/17 00:01 Dose: 1 applic Hydroxyzine HCl (Atarax) 100 mg PO HS [facility] Last Admin: 01/13/17 22:01 Dose: 100 mg Lactulose (Lactulose) 20 gm PO 5XD [facility] Last Admin: 01/14/17 09:52 Dose: 20 gm Lorazepam (Ativan) 0.5 mg PO Q6H PRN PRN Reason: Extreme agitation Last Admin: 01/11/17 01:51 Dose: 0.5 mg Lorazepam (Ativan Inj) 0.5 mg IM Q6H PRN PRN Reason: Extreme agitation Meloxicam (Mobic) 15 mg PO WB [facility] Last Admin: 01/14/17 09:51 Dose: 15 mg Pantoprazole Sodium (Protonix Tab) 40 mg PO ACB [facility] Last Admin: 01/14/17 05:42 Dose: 40 mg Rifaximin (Xifaxan) 550 mg PO BID [facility] Last Admin: 01/14/17 09:52 Dose: 550 mg Sertraline HCl (Zoloft) 200 mg PO DAILY [facility] Last Admin: 01/14/17 09:52 Dose: 200 mg Tramadol HCl (Ultram) 50 mg PO TID PRN PRN Reason: Moderate pain Last Admin: 01/12/17 17:24 Dose: 50 mg Subjective: Pt seen and chart examined. Nursing reports pt is doing well. Sleeping well and has a good appetite. On face to face the pt states he is feeling a little better. Mood improving. Still has morbid thoughts at times. Tolerating meds Start Time: 10:30 Stop Time: 10:45 Mental Status Exam Vitals: Last Vital Signs Temp 97.8 F 01/14/17 07:31 Pulse 86 01/14/17 07:37 Resp 18 01/14/17 07:31 BP 97/52 01/14/17 07:37 Pulse Ox 98 01/14/17 07:31 Height: 1.88 m Weight: 138.346 kg - Mental Status Exam Muscle Strength/Tone: Weak Dressing: Casual Grooming: Poor Attitude: Cooperative Motor Activity: Retardation Eye Contact: Fair Speech: Slowed Volume: Soft Rhythm: Appropriate Rhythm Orientation: Oriented X4 Mood: Depressed Rate of Thoughts: Delayed Thought Organization: Organized Associations: Intact Abstract Reasoning: Intact, able to abstract Computation: Intact Thought Content: Helplessness, Worthlessness Perception/Psychotic: Perception Normal Language: Naming Intact Fund of Knowledge: Jose aware current events Memory: Grossly Intact Suicidal Ideation: Denies Homicidal Ideation: None Insight: Fair Judgement: Poor Impulse Control: Poor - Laboratory Result Diagrams: 01/12/17 05:04 01/12/17 05:04 Assessment and Plan (1) Bipolar disorder Qualifiers: Current bipolar episode type: depressed Current episode severity: severe Psychotic features: without psychotic features Problem details: severe depression/suicidal ideation Current visit: Yes Status: Acute Hospital Course Summary Disclaimer: The visit summary below is not to be considered part of the above Progress Note. Hospital Course: 01/10/17 acute encephalopathy secondary to hepatic cirrhosis Check CBC and CMP today. hepatic cirrhosis with elevated ammonia Ammonia level is 116 today. He came to us on lactulose and rifaximin. Will discuss with attending to determine if he needs to continue on both meds. Will follow LFT's Obstructive Sleep Apnea Uses CPAP at home. Will monitor. Patient may require O2 at night if he becomes hypoxic Bipolar II with suicidal ideation Psych to follow. May need to discuss reducing/changing sertraline as use is not recommended in moderate to severe liver impairment chronic venous stasis Wound team has been consulted for evaluation Consider compression stockings if needed pancytopenia secondary to cirrhosis vs meds Will monitor with CBC At time of discharge, medical care will return to patients primary care provider at the [facility] 01/11/17 15:17 Continue to monitor bowel movements-should be having approximately 3 bowel movements daily. Continue rifaximin and lactulose. CBC and CMP tomorrow to follow pancytopenia, renal and liver function ammonia level improved but still elevated 01/11/17 19:13 Continue current care 01/12/17 17:23 Hydroxyzine 50mg PO QHS 01/13/17 11:16 Increase Hydroxyzine to 100mg PO QHS 01/14/17 11:23 D/C Deanna
[2017-01-14] MEDS: BuPROPion SR 150mg (12HR) TABLET PO SCH (12:05)
[2017-01-14] MEDS: HydrOXYzine 50 MG TABLET PO SCH (22:26)
[2017-01-15] MEDS: PANTOPRAZOLE 40 MG TABLET PO SCH (05:56)
[2017-01-15] MEDS: MELOXICAM 15 MG TABLET PO SCH (08:14)
[2017-01-15] MEDS: LACTULOSE 20 GM/30 ML ORAL LIQUID PO SCH ×5 (08:14→20:21)
[2017-01-15] MEDS: SERTRALINE 100 MG TABLET PO SCH (08:15)
[2017-01-15] MEDS: RIFAXIMIN 550 MG TABLET PO SCH ×2 (08:15→20:22)
--- NOTE | 2017-01-15 10:11 | Progress Note ---
Subjective: Mr Arndt is seen today in follow up. He is up the the recliner napping this morning following breakfast. He does arouse and answer questions during exam. He denies feeling short of breath. States he has some leg pain that is chronic. Appetite is good and bowels are moving regularly. Objective Vital signs: Temperature 98.5 F 01/15/17 08:00 Pulse Rate 76 01/15/17 09:38 Respiratory Rate 16 01/15/17 08:00 Blood Pressure 109/52 01/15/17 09:38 Pulse Oximetry 98 01/15/17 08:00 Oxygen Delivery Method Room Air Body Mass Index: 39.2 - Constitutional Present: no acute distress, well nourished, well developed - Routine HEENT Exam Eye: Present: EOMI, PERRL ENT: Present: mucous membranes moist, dentition normal - Routine Respiratory Exam Present: CTA bilaterally. Absent: wheezes - Routine Cardiovascular Exam Present: RRR, S1, S2. Absent: murmur - Routine Abdominal Exam Present: soft, normoactive bowel sounds, non distended. 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 Old records revel WBC count has been low <2 chronically. No need to continue to check Ammonia levels given chronic hepatic encephalopathy. Continue on chronic lactulose and Rifaximin. Blood pressure has been well controlled. Monitor electrolyses occasionally as sodium has been borderline elevated Further psychiatric care as per Dr. Cruz Encourage to encourage patient to participate in unit activities and provide a safe environment. Sepsis Assessment - Evaluation Sepsis screening result: No Definite Risk Hospital Course Summary Disclaimer: The visit summary below is not to be considered part of the above Progress Note. Hospital Course: 01/10/17 acute encephalopathy secondary to hepatic cirrhosis Check CBC and CMP today. hepatic cirrhosis with elevated ammonia Ammonia level is 116 today. He came to us on lactulose and rifaximin. Will discuss with attending to determine if he needs to continue on both meds. Will follow LFT's Obstructive Sleep Apnea Uses CPAP at home. Will monitor. Patient may require O2 at night if he becomes hypoxic Bipolar II with suicidal ideation Psych to follow. May need to discuss reducing/changing sertraline as use is not recommended in moderate to severe liver impairment chronic venous stasis Wound team has been consulted for evaluation Consider compression stockings if needed pancytopenia secondary to cirrhosis vs meds Will monitor with CBC At time of discharge, medical care will return to patients primary care provider at the [facility] 01/11/17 15:17 Continue to monitor bowel movements-should be having approximately 3 bowel movements daily. Continue rifaximin and lactulose. CBC and CMP tomorrow to follow pancytopenia, renal and liver function ammonia level improved but still elevated 01/11/17 19:13 Continue current care 01/12/17 17:23 Hydroxyzine 50mg PO QHS 01/13/17 11:16 Increase Hydroxyzine to 100mg PO QHS 01/14/17 11:23 D/C Deanna
[2017-01-15] MEDS: BuPROPion SR 150mg (12HR) TABLET PO SCH (11:55)
--- NOTE | 2017-01-15 18:57 | Neuropsych Progress Note ---
[place] Subjective Date: 01/15/17 - Sujective/Severity of Illness Medications: Bupropion HCl (Wellbutrin Sr) 300 mg PO [id number]@1200 [facility] Last Admin: 01/15/17 11:55 Dose: 300 mg Haloperidol (Haldol) 0.5 mg PO Q6H PRN PRN Reason: Extreme agitation Haloperidol Lactate (Haldol) 0.5 mg IM Q6H PRN PRN Reason: Extreme agitation Hydrocortisone (Cortizone-10 Cream) 1 applic TOP TID PRN PRN Reason: Rash Last Admin: 01/12/17 00:01 Dose: 1 applic Hydroxyzine HCl (Atarax) 100 mg PO 2100 [facility] Lactulose (Lactulose) 20 gm PO 5XD [facility] Last Admin: 01/15/17 17:11 Dose: 20 gm Lorazepam (Ativan) 0.5 mg PO Q6H PRN PRN Reason: Extreme agitation Last Admin: 01/11/17 01:51 Dose: 0.5 mg Lorazepam (Ativan Inj) 0.5 mg IM Q6H PRN PRN Reason: Extreme agitation Meloxicam (Mobic) 15 mg PO WB [facility] Last Admin: 01/15/17 08:14 Dose: 15 mg Pantoprazole Sodium (Protonix Tab) 40 mg PO ACB [facility] Last Admin: 01/15/17 05:56 Dose: 40 mg Rifaximin (Xifaxan) 550 mg PO BID [facility] Last Admin: 01/15/17 08:15 Dose: 550 mg Sertraline HCl (Zoloft) 200 mg PO DAILY [facility] Last Admin: 01/15/17 08:15 Dose: 200 mg Tramadol HCl (Ultram) 50 mg PO TID PRN PRN Reason: Moderate pain Last Admin: 01/12/17 17:24 Dose: 50 mg Subjective: Pt seen and chart examined. Nursing reports pt is doing well. Sleeping well and has a good appetite. On face to face the pt states he continues to improve. He reports he remains depressed but denies any S/I. Sleeping better. Tolerating meds Start Time: 18:30 Stop Time: 18:45 Mental Status Exam Vitals: Last Vital Signs Temp 97.6 F 01/15/17 16:00 Pulse 63 01/15/17 16:00 Resp 16 01/15/17 16:00 BP 130/59 01/15/17 16:00 Pulse Ox 100 01/15/17 16:00 Height: 1.88 m Weight: 138.346 kg - Mental Status Exam Muscle Strength/Tone: Weak Dressing: Casual Grooming: Poor Attitude: Cooperative Motor Activity: Retardation Eye Contact: Fair Speech: Slowed Volume: Soft Rhythm: Appropriate Rhythm Orientation: Oriented X4 Mood: Depressed Rate of Thoughts: Delayed Thought Organization: Organized Associations: Intact Abstract Reasoning: Intact, able to abstract Computation: Intact Thought Content: Helplessness, Worthlessness Perception/Psychotic: Perception Normal Language: Naming Intact Fund of Knowledge: Jose aware current events Memory: Grossly Intact Suicidal Ideation: Denies Homicidal Ideation: None Insight: Fair Judgement: Poor Impulse Control: Poor - Laboratory Result Diagrams: 01/15/17 05:03 01/15/17 05:03 Laboratory Results - last 24 hr 01/15/17 01/15/17 05:03 05:03 WBC 1.2 L* RBC 3.22 L Hgb 9.4 L Hct 29.8 L MCV 92.5 MCH 29.2 MCHC 31.5 RDW Std Deviation 59.9 H Plt Count 45 L MPV 11.7 Immature Gran % (Auto) Not performed Neut % (Auto) Not performed Lymph % (Auto) Not performed [place] % (Auto) Not performed Eos % (Auto) Not performed Baso % (Auto) Not performed Neut # Not performed Lymph # Not performed [place] # Not performed Eos # Not performed Baso # Not performed Abs Immat Gran (auto) Not performed Neutrophils % (Manual) 60.0 Lymphocytes % (Manual) 36.0 Monocytes % (Manual) 4.0 Neutrophils # (Manual) 0.7 L Lymphocytes # (Manual) 0.4 L Monocytes # (Manual) 0.0 Poikilocytosis 2+ Anisocytosis 2+ RBC Morph Comment Abnormal Turbidity < 20 Sodium 145 H Potassium 3.8 Chloride 112 H Carbon Dioxide 26 Anion Gap 7 BUN 19.0 Creatinine 1.1 GFR Calculation 67 BUN/Creatinine Ratio 17 Glucose 109 Calculated Osmolality 282 H Calcium 9.2 Icterus Index < 2 Specimen Hemolysis < 15 Assessment and Plan (1) Bipolar disorder Qualifiers: Current bipolar episode type: depressed Current episode severity: severe Psychotic features: without psychotic features Problem details: severe depression/suicidal ideation Current visit: Yes Status: Acute Hospital Course Summary Disclaimer: The visit summary below is not to be considered part of the above Progress Note. Hospital Course: 01/10/17 acute encephalopathy secondary to hepatic cirrhosis Check CBC and CMP today. hepatic cirrhosis with elevated ammonia Ammonia level is 116 today. He came to us on lactulose and rifaximin. Will discuss with attending to determine if he needs to continue on both meds. Will follow LFT's Obstructive Sleep Apnea Uses CPAP at home. Will monitor. Patient may require O2 at night if he becomes hypoxic Bipolar II with suicidal ideation Psych to follow. May need to discuss reducing/changing sertraline as use is not recommended in moderate to severe liver impairment chronic venous stasis Wound team has been consulted for evaluation Consider compression stockings if needed pancytopenia secondary to cirrhosis vs meds Will monitor with CBC At time of discharge, medical care will return to patients primary care provider at the [facility] 01/11/17 15:17 Continue to monitor bowel movements-should be having approximately 3 bowel movements daily. Continue rifaximin and lactulose. CBC and CMP tomorrow to follow pancytopenia, renal and liver function ammonia level improved but still elevated 01/11/17 19:13 Continue current care 01/12/17 17:23 Hydroxyzine 50mg PO QHS 01/13/17 11:16 Increase Hydroxyzine to 100mg PO QHS 01/14/17 11:23 D/C Abilify 01/15/17 18:56 Will contact OP provider to discuss WBC and treatment for Bipolar D/O
[2017-01-15] MEDS: HydrOXYzine 50 MG TABLET PO SCH (20:22)
[2017-01-16] MEDS: PANTOPRAZOLE 40 MG TABLET PO SCH (06:23)
[2017-01-16] MEDS: LACTULOSE 20 GM/30 ML ORAL LIQUID PO SCH ×6 (07:37→20:10)
[2017-01-16] MEDS: MELOXICAM 15 MG TABLET PO SCH (07:37)
[2017-01-16] MEDS: RIFAXIMIN 550 MG TABLET PO SCH ×3 (07:37→20:10)
[2017-01-16] MEDS: SERTRALINE 100 MG TABLET PO SCH ×2 (07:38→08:13)
--- NOTE | 2017-01-16 17:20 | Neuropsych Progress Note ---
[place] Subjective Date: 01/16/17 - Sujective/Severity of Illness Medications: Bupropion HCl (Wellbutrin Sr) 300 mg PO SuMoWeFr@1200 [facility] Last Admin: 01/15/17 11:55 Dose: 300 mg Haloperidol (Haldol) 0.5 mg PO Q6H PRN PRN Reason: Extreme agitation Haloperidol Lactate (Haldol) 0.5 mg IM Q6H PRN PRN Reason: Extreme agitation Hydrocortisone (Cortizone-10 Cream) 1 applic TOP TID PRN PRN Reason: Rash Last Admin: 01/12/17 00:01 Dose: 1 applic Hydroxyzine HCl (Atarax) 100 mg PO 2100 [facility] Last Admin: 01/15/17 20:22 Dose: 100 mg Lactulose (Lactulose) 20 gm PO 5XD [facility] Last Admin: 01/16/17 15:13 Dose: 20 gm Lorazepam (Ativan) 0.5 mg PO Q6H PRN PRN Reason: Extreme agitation Last Admin: 01/11/17 01:51 Dose: 0.5 mg Lorazepam (Ativan Inj) 0.5 mg IM Q6H PRN PRN Reason: Extreme agitation Meloxicam (Mobic) 15 mg PO WB [facility] Last Admin: 01/16/17 07:37 Dose: 15 mg Pantoprazole Sodium (Protonix Tab) 40 mg PO ACB [facility] Last Admin: 01/16/17 06:23 Dose: 40 mg Rifaximin (Xifaxan) 550 mg PO BID [facility] Last Admin: 01/16/17 08:13 Dose: Not Given Sertraline HCl (Zoloft) 200 mg PO DAILY [facility] Last Admin: 01/16/17 08:13 Dose: Not Given Tramadol HCl (Ultram) 50 mg PO TID PRN PRN Reason: Moderate pain Last Admin: 01/12/17 17:24 Dose: 50 mg Subjective: Pt seen and chart examined. Nursing reports pt is doing well. Reports sleeping well and has a good appetite. Has been active with groups and no behaviors noted. On face to face the pt states he is doing better. He reports his mood is improved and he denies any S/I. He reports tolerating meds well. Start Time: 16:30 Stop Time: 16:45 Mental Status Exam Vitals: Last Vital Signs Temp 97.7 F 01/16/17 16:00 Pulse 66 08/01/17 16:00 Resp 18 01/16/17 16:00 BP 129/54 01/16/17 16:00 Pulse Ox 100 01/16/17 16:00 Height: 1.88 m Weight: 138.346 kg - Mental Status Exam Muscle Strength/Tone: Weak Dressing: Casual Grooming: Poor Attitude: Cooperative Motor Activity: Retardation Eye Contact: Fair Speech: Slowed Volume: Soft Rhythm: Appropriate Rhythm Orientation: Oriented X4 Mood: Depressed Rate of Thoughts: Delayed Thought Organization: Organized Associations: Intact Abstract Reasoning: Intact, able to abstract Computation: Intact Thought Content: Helplessness, Worthlessness Perception/Psychotic: Perception Normal Language: Naming Intact Fund of Knowledge: Jose aware current events Memory: Grossly Intact Suicidal Ideation: Denies Homicidal Ideation: None Insight: Fair Judgement: Poor Impulse Control: Poor - Laboratory Result Diagrams: 01/15/17 05:03 01/15/17 05:03 Assessment and Plan (1) Bipolar disorder Qualifiers: Current bipolar episode type: depressed Current episode severity: severe Psychotic features: without psychotic features Problem details: severe depression/suicidal ideation Current visit: Yes Status: Acute Hospital Course Summary Disclaimer: The visit summary below is not to be considered part of the above Progress Note. Hospital Course: 01/10/17 acute encephalopathy secondary to hepatic cirrhosis Check CBC and CMP today. hepatic cirrhosis with elevated ammonia Ammonia level is 116 today. He came to us on lactulose and rifaximin. Will discuss with attending to determine if he needs to continue on both meds. Will follow LFT's Obstructive Sleep Apnea Uses CPAP at home. Will monitor. Patient may require O2 at night if he becomes hypoxic Bipolar II with suicidal ideation Psych to follow. May need to discuss reducing/changing sertraline as use is not recommended in moderate to severe liver impairment chronic venous stasis Wound team has been consulted for evaluation Consider compression stockings if needed pancytopenia secondary to cirrhosis vs meds Will monitor with CBC At time of discharge, medical care will return to patients primary care provider at the [facility] 01/11/17 15:17 Continue to monitor bowel movements-should be having approximately 3 bowel movements daily. Continue rifaximin and lactulose. CBC and CMP tomorrow to follow pancytopenia, renal and liver function ammonia level improved but still elevated 01/11/17 19:13 Continue current care 01/12/17 17:23 Hydroxyzine 50mg PO QHS 01/13/17 11:16 Increase Hydroxyzine to 100mg PO QHS 01/14/17 11:23 D/C Abilify 01/15/17 18:56 Will contact OP provider to discuss WBC and treatment for Bipolar D/O 01/16/17 17:19 Continue current care
[2017-01-16] MEDS: HydrOXYzine 50 MG TABLET PO SCH (20:10)
[2017-01-17] MEDS: PANTOPRAZOLE 40 MG TABLET PO SCH (05:36)
[2017-01-17] MEDS: MELOXICAM 15 MG TABLET PO SCH (08:34)
[2017-01-17] MEDS: LACTULOSE 20 GM/30 ML ORAL LIQUID PO SCH ×5 (08:34→20:04)
[2017-01-17] MEDS: SERTRALINE 100 MG TABLET PO SCH (08:35)
[2017-01-17] MEDS: RIFAXIMIN 550 MG TABLET PO SCH ×2 (08:35→20:04)
[2017-01-17] MEDS: BuPROPion SR 150mg (12HR) TABLET PO SCH (12:04)
--- NOTE | 2017-01-17 18:24 | Neuropsych Progress Note ---
[place] Subjective Date: 01/17/17 - Sujective/Severity of Illness Medications: Bupropion HCl (Wellbutrin Sr) 300 mg PO SuMoWeFr@1200 [facility] Last Admin: 01/17/17 12:04 Dose: 300 mg Haloperidol (Haldol) 0.5 mg PO Q6H PRN PRN Reason: Extreme agitation Haloperidol Lactate (Haldol) 0.5 mg IM Q6H PRN PRN Reason: Extreme agitation Hydrocortisone (Cortizone-10 Cream) 1 applic TOP TID PRN PRN Reason: Rash Last Admin: 01/12/17 00:01 Dose: 1 applic Hydroxyzine HCl (Atarax) 100 mg PO 2100 [facility] Last Admin: 01/16/17 20:10 Dose: 100 mg Lactulose (Lactulose) 20 gm PO 5XD [facility] Last Admin: 01/17/17 18:04 Dose: 20 gm Lorazepam (Ativan) 0.5 mg PO Q6H PRN PRN Reason: Extreme agitation Last Admin: 01/11/17 01:51 Dose: 0.5 mg Lorazepam (Ativan Inj) 0.5 mg IM Q6H PRN PRN Reason: Extreme agitation Meloxicam (Mobic) 15 mg PO WB [facility] Last Admin: 01/17/17 08:34 Dose: 15 mg Pantoprazole Sodium (Protonix Tab) 40 mg PO ACB [facility] Last Admin: 01/17/17 05:36 Dose: 40 mg Rifaximin (Xifaxan) 550 mg PO BID [facility] Last Admin: 01/17/17 08:35 Dose: 550 mg Sertraline HCl (Zoloft) 200 mg PO DAILY [facility] Last Admin: 01/17/17 08:35 Dose: 200 mg Tramadol HCl (Ultram) 50 mg PO TID PRN PRN Reason: Moderate pain Last Admin: 01/12/17 17:24 Dose: 50 mg Subjective: Pt seen and chart examined. Nursing reports pt is doing well. Sleeping well and having a good appetite. No behaviors noted. On face to face the pt states he is feeling better. Mood improved. Continues to have morbid thoughts at times but states he feels he would be safe at home. Tolerating meds. Anxiety improved. Spoke with patients [employer] from [facility]. She states his low WBC count is chronic and she feels he should be on the Abilify to manage his bipolar symptoms. Start Time: 17:15 Stop Time: 17:30 Mental Status Exam Vitals: Last Vital Signs Temp 97.2 F 01/17/17 16:00 Pulse 84 01/17/17 16:00 Resp 16 01/17/17 07:58 BP 114/62 01/17/17 17:05 Pulse Ox 100 01/17/17 16:00 Height: 1.88 m Weight: 140.8 kg - Mental Status Exam Muscle Strength/Tone: Weak Dressing: Casual Grooming: Poor Attitude: Cooperative Motor Activity: Retardation Eye Contact: Fair Speech: Slowed Volume: Soft Rhythm: Appropriate Rhythm Orientation: Oriented X4 Mood: Depressed Rate of Thoughts: Delayed Thought Organization: Organized Associations: Intact Abstract Reasoning: Intact, able to abstract Computation: Intact Thought Content: Helplessness, Worthlessness Perception/Psychotic: Perception Normal Language: Naming Intact Fund of Knowledge: Jose aware current events Memory: Grossly Intact Suicidal Ideation: Denies Homicidal Ideation: None Insight: Fair Judgement: Fair Impulse Control: Fair - Laboratory Result Diagrams: 01/15/17 05:03 01/15/17 05:03 Assessment and Plan (1) Bipolar disorder Qualifiers: Current bipolar episode type: depressed Current episode severity: severe Psychotic features: without psychotic features Problem details: severe depression/suicidal ideation Current visit: Yes Status: Acute Hospital Course Summary Disclaimer: The visit summary below is not to be considered part of the above Progress Note. Hospital Course: 01/10/17 acute encephalopathy secondary to hepatic cirrhosis Check CBC and CMP today. hepatic cirrhosis with elevated ammonia Ammonia level is 116 today. He came to us on lactulose and rifaximin. Will discuss with attending to determine if he needs to continue on both meds. Will follow LFT's Obstructive Sleep Apnea Uses CPAP at home. Will monitor. Patient may require O2 at night if he becomes hypoxic Bipolar II with suicidal ideation Psych to follow. May need to discuss reducing/changing sertraline as use is not recommended in moderate to severe liver impairment chronic venous stasis Wound team has been consulted for evaluation Consider compression stockings if needed pancytopenia secondary to cirrhosis vs meds Will monitor with CBC At time of discharge, medical care will return to patients primary care provider at the [facility] 01/11/17 15:17 Continue to monitor bowel movements-should be having approximately 3 bowel movements daily. Continue rifaximin and lactulose. CBC and CMP tomorrow to follow pancytopenia, renal and liver function ammonia level improved but still elevated 01/11/17 19:13 Continue current care 01/12/17 17:23 Hydroxyzine 50mg PO QHS 01/13/17 11:16 Increase Hydroxyzine to 100mg PO QHS 01/14/17 11:23 D/C Abilify 01/15/17 18:56 Will contact OP provider to discuss WBC and treatment for Bipolar D/O 01/16/17 17:19 Continue current care 01/17/17 18:24 Restart Abilify 5mg daily
[2017-01-17] MEDS: HydrOXYzine 50 MG TABLET PO SCH (21:00)
[2017-01-18] MEDS: TRAMADOL 50 MG TABLET PO PRN (00:26)
[2017-01-18] MEDS: PANTOPRAZOLE 40 MG TABLET PO SCH (06:49)
[2017-01-18] MEDS: MELOXICAM 15 MG TABLET PO SCH (08:05)
[2017-01-18] MEDS: SERTRALINE 100 MG TABLET PO SCH (08:06)
[2017-01-18] MEDS: LACTULOSE 20 GM/30 ML ORAL LIQUID PO SCH ×5 (08:06→20:19)
[2017-01-18] MEDS: RIFAXIMIN 550 MG TABLET PO SCH ×2 (08:07→20:19)
[2017-01-18] MEDS ORDERED: ARIPiprazole 5 MG TABLET PO SCH (09:00)
--- NOTE | 2017-01-18 09:35 | Progress Note ---
<Fang Giron V - Last Filed: 01/18/17 09:26> Subjective: Tejinder is seen this morning while napping in a recliner in the day room following breakfast. He does not arouse during examination. He is comfortably breathing on room air without any evidence of distress. Nursing reports no concerns. He did snag her toenail on the sheets last night and have been placing ointment and bandage. No other complains to nursing staff. The pressure this morning was slightly low at 96/55. Objective Vital signs: Temperature 97.4 F 01/18/17 07:19 Pulse Rate 81 01/18/17 07:20 Respiratory Rate 16 01/18/17 07:19 Blood Pressure 96/55 01/18/17 07:20 Pulse Oximetry 96 01/18/17 07:19 Oxygen Delivery Method Room Air Weight: 140.8 kg - Constitutional Present: no acute distress, well nourished, well developed - Routine HEENT Exam ENT: Present: mucous membranes moist, dentition normal - Routine Respiratory Exam Present: CTA bilaterally. Absent: wheezes - Routine Cardiovascular Exam Present: RRR, S1, S2. Absent: murmur - Routine Abdominal Exam Present: soft, normoactive bowel sounds, non distended. 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 Overall Neville has been doing well without significant problems. Will continue to monitor blood pressure as he was slightly low this morning. Continues on lactulose 5 times a day for chronic hepatic encephalopathy Further psychiatric care as per Dr. Cruz, started Abilify Encourage to encourage patient to participate in unit activities and provide a safe environment. Sepsis Assessment - Evaluation Sepsis screening result: No Definite Risk Hospital Course Summary Disclaimer: The visit summary below is not to be considered part of the above Progress Note. Hospital Course: 01/10/17 acute encephalopathy secondary to hepatic cirrhosis Check CBC and CMP today. hepatic cirrhosis with elevated ammonia Ammonia level is 116 today. He came to us on lactulose and rifaximin. Will discuss with attending to determine if he needs to continue on both meds. Will follow LFT's Obstructive Sleep Apnea Uses CPAP at home. Will monitor. Patient may require O2 at night if he becomes hypoxic Bipolar II with suicidal ideation Psych to follow. May need to discuss reducing/changing sertraline as use is not recommended in moderate to severe liver impairment chronic venous stasis Wound team has been consulted for evaluation Consider compression stockings if needed pancytopenia secondary to cirrhosis vs meds Will monitor with CBC At time of discharge, medical care will return to patients primary care provider at the [facility] 01/11/17 15:17 Continue to monitor bowel movements-should be having approximately 3 bowel movements daily. Continue rifaximin and lactulose. CBC and CMP tomorrow to follow pancytopenia, renal and liver function ammonia level improved but still elevated 01/11/17 19:13 Continue current care 01/12/17 17:23 Hydroxyzine 50mg PO QHS 01/13/17 11:16 Increase Hydroxyzine to 100mg PO QHS 01/14/17 11:23 D/C Abilify 01/15/17 18:56 Will contact OP provider to discuss WBC and treatment for Bipolar D/O 01/16/17 17:19 Continue current care 01/17/17 18:24 Restart Abilify 5mg daily 01/18/17 Will recheck CBC and BMP this morning to follow pancytopenia, electro-lytes and renal function. Overall Neville has been doing well without significant problems. Will continue to monitor blood pressure as he was slightly low this morning. Continues on lactulose 5 times a day for chronic hepatic encephalopathy Further psychiatric care as per Dr. Cruz, added Abilify Encourage to encourage patient to participate in unit activities and provide a safe environment. 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 Pt is on Abilify, Zoloft, Meloxicam -all reported to cause Leukopenia and or Neutropenia. Pt ANC count now is 480 so he could be requiring neutropenic precautions soon. Will recheck CBC at 5pm. Would have to watch off Abilify and also will wean off Zoloft. May use other agent for pain besides Meloxicam. Also on Tramadol which increases confusssion - will stop as well. The CBC this AM shows a drop on the H/H, WBC count and platelets so this could be dilutional - will recheck at 17:00 Will also check Ammonia level. Hospital Course Summary Disclaimer: The visit summary below is not to be considered part of the above Progress Note.
--- NOTE | 2017-01-18 14:51 | Neuropsych Progress Note ---
[facility] Subjective Date: 01/18/17 - Sujective/Severity of Illness Medications: Bupropion HCl (Wellbutrin Sr) 300 mg PO SuMoWeFr@1200 [facility] Last Admin: 01/17/17 12:04 Dose: 300 mg Haloperidol (Haldol) 0.5 mg PO Q6H PRN PRN Reason: Extreme agitation Haloperidol Lactate (Haldol) 0.5 mg IM Q6H PRN PRN Reason: Extreme agitation Hydrocortisone (Cortizone-10 Cream) 1 applic TOP TID PRN PRN Reason: Rash Last Admin: 01/12/17 00:01 Dose: 1 applic Hydroxyzine HCl (Atarax) 100 mg PO 2100 [facility] Last Admin: 01/17/17 21:00 Dose: 100 mg Lactulose (Lactulose) 20 gm PO 5XD [facility] Last Admin: 01/18/17 12:05 Dose: 20 gm Lorazepam (Ativan) 0.5 mg PO Q6H PRN PRN Reason: Extreme agitation Last Admin: 01/11/17 01:51 Dose: 0.5 mg Lorazepam (Ativan Inj) 0.5 mg IM Q6H PRN PRN Reason: Extreme agitation Pantoprazole Sodium (Protonix Tab) 40 mg PO ACB [facility] Last Admin: 01/18/17 06:49 Dose: 40 mg Rifaximin (Xifaxan) 550 mg PO BID [facility] Last Admin: 01/18/17 08:07 Dose: 550 mg Sertraline HCl (Zoloft) 100 mg PO DAILY [facility] Subjective: Pt seen and chart examined. Nursing reports pt is doing well. Sleeping well and has a good appetite. On face to face the pt states he remains depressed but it is improving. He denies any S/I. He reports tolerating his meds. Anxiety well controlled. Spoke with medical team. White count continues to fall Start Time: 14:15 Stop Time: 14:30 Mental Status Exam Vitals: Last Vital Signs Temp 97.4 F 01/18/17 07:19 Pulse 81 01/18/17 07:20 Resp 16 01/18/17 07:19 BP 96/55 01/18/17 07:20 Pulse Ox 96 01/18/17 07:19 Height: 1.88 m Weight: 140.8 kg - Mental Status Exam Muscle Strength/Tone: Weak Dressing: Casual Grooming: Poor Attitude: Cooperative Motor Activity: Retardation Eye Contact: Fair Speech: Slowed Volume: Soft Rhythm: Appropriate Rhythm Orientation: Oriented X4 Mood: Depressed Rate of Thoughts: Delayed Thought Organization: Organized Associations: Intact Abstract Reasoning: Intact, able to abstract Computation: Intact Thought Content: Helplessness, Worthlessness Perception/Psychotic: Perception Normal Language: Naming Intact Fund of Knowledge: Jose aware current events Memory: Grossly Intact Suicidal Ideation: Denies Homicidal Ideation: None Insight: Fair Judgement: Fair Impulse Control: Fair - Laboratory Result Diagrams: 01/18/17 09:25 01/18/17 09:25 Laboratory Results - last 24 hr 01/15/17 01/18/17 01/18/17 04:59 09:25 09:25 WBC 0.9 L* RBC 3.01 L Hgb 8.7 L Hct 28.3 L MCV 94.0 MCH 28.9 MCHC 30.7 L RDW Std Deviation 61.3 H Plt Count 35 L MPV 10.6 Immature Gran % (Auto) Not performed Neut % (Auto) Not performed Lymph % (Auto) Not performed [place] % (Auto) Not performed Eos % (Auto) Not performed Baso % (Auto) Not performed Neut # Not performed Lymph # Not performed [place] # Not performed Eos # Not performed Baso # Not performed Abs Immat Gran (auto) Not performed Neutrophils % (Manual) 48.0 Band Neutrophils % 2.0 Lymphocytes % (Manual) 44.0 Monocytes % (Manual) 6.0 Neutrophils # (Manual) 0.4 L Band Neutrophils # 0.0 Lymphocytes # (Manual) 0.4 L Monocytes # (Manual) 0.1 Poikilocytosis 2+ Anisocytosis 2+ Target Cells 1+ Ovalocytes 2+ Helmet Cells 1+ RBC Morph Comment Abnormal Turbidity < 20 Sodium 147 H Potassium 4.1 Chloride 113 H Carbon Dioxide 27 Anion Gap 7 BUN 20.0 Creatinine 1.2 GFR Calculation 61 BUN/Creatinine Ratio 17 Glucose 153 H Calculated Osmolality 288 H Calcium 9.5 Icterus Index < 2 Triglycerides 67 Cholesterol 125 L LDL Cholesterol, Calc 77.6 VLDL Cholesterol 13.4 HDL Cholesterol 34 L Cholesterol/HDL Ratio 3.7 Specimen Hemolysis < 15 Assessment and Plan (1) Bipolar disorder Qualifiers: Current bipolar episode type: depressed Current episode severity: severe Psychotic features: without psychotic features Problem details: severe depression/suicidal ideation Current visit: Yes Status: Acute Hospital Course Summary Disclaimer: The visit summary below is not to be considered part of the above Progress Note. Hospital Course: 01/10/17 acute encephalopathy secondary to hepatic cirrhosis Check CBC and CMP today. hepatic cirrhosis with elevated ammonia Ammonia level is 116 today. He came to us on lactulose and rifaximin. Will discuss with attending to determine if he needs to continue on both meds. Will follow LFT's Obstructive Sleep Apnea Uses CPAP at home. Will monitor. Patient may require O2 at night if he becomes hypoxic Bipolar II with suicidal ideation Psych to follow. May need to discuss reducing/changing sertraline as use is not recommended in moderate to severe liver impairment chronic venous stasis Wound team has been consulted for evaluation Consider compression stockings if needed pancytopenia secondary to cirrhosis vs meds Will monitor with CBC At time of discharge, medical care will return to patients primary care provider at the [facility] 01/11/17 15:17 Continue to monitor bowel movements-should be having approximately 3 bowel movements daily. Continue rifaximin and lactulose. CBC and CMP tomorrow to follow pancytopenia, renal and liver function ammonia level improved but still elevated 01/11/17 19:13 Continue current care 01/12/17 17:23 Hydroxyzine 50mg PO QHS 01/13/17 11:16 Increase Hydroxyzine to 100mg PO QHS 01/14/17 11:23 D/C Abilify 01/15/17 18:56 Will contact OP provider to discuss WBC and treatment for Bipolar D/O 01/16/17 17:19 Continue current care 01/17/17 18:24 Restart Abilify 5mg daily 01/18/17 Will recheck CBC and BMP this morning to follow pancytopenia, electro-lytes and renal function. Overall Neville has been doing well without significant problems. Will continue to monitor blood pressure as he was slightly low this morning. Continues on lactulose 5 times a day for chronic hepatic encephalopathy Further psychiatric care as per Dr. Cruz, added Deanna Encourage to encourage patient to participate in unit activities and provide a safe environment. 01/18/17 14:50 Will D/C Abilify.
[2017-01-18] MEDS: HydrOXYzine 50 MG TABLET PO SCH (20:23)
[2017-01-19] MEDS ORDERED: BISACODYL 10 MG SUPPOSITORY RECTALLY PRN (02:04)
[2017-01-19] MEDS: PANTOPRAZOLE 40 MG TABLET PO SCH ×2 (04:56→05:57)
[2017-01-19] MEDS: RIFAXIMIN 550 MG TABLET PO SCH ×3 (07:38→20:03)
[2017-01-19] MEDS: LACTULOSE 20 GM/30 ML ORAL LIQUID PO SCH ×6 (07:38→20:03)
[2017-01-19] MEDS: SERTRALINE 100 MG TABLET PO SCH ×2 (07:38→09:11)
[2017-01-19] MEDS: BuPROPion SR 150mg (12HR) TABLET PO SCH (11:46)
--- NOTE | 2017-01-19 17:51 | Neuropsych Progress Note ---
[facility] Subjective Date: 01/19/17 - Sujective/Severity of Illness Medications: Bisacodyl (Dulcolax) 10 mg RECTALLY DAILY PRN PRN Reason: Constipation Bupropion HCl (Wellbutrin Sr) 300 mg PO SuMoWeFr@1200 [facility] Last Admin: 01/19/17 11:46 Dose: 300 mg Haloperidol (Haldol) 0.5 mg PO Q6H PRN PRN Reason: Extreme agitation Haloperidol Lactate (Haldol) 0.5 mg IM Q6H PRN PRN Reason: Extreme agitation Hydrocortisone (Cortizone-10 Cream) 1 applic TOP TID PRN PRN Reason: Rash Last Admin: 01/12/17 00:01 Dose: 1 applic Hydroxyzine HCl (Atarax) 100 mg PO 2100 [facility] Last Admin: 01/18/17 20:23 Dose: 100 mg Lactulose (Lactulose) 20 gm PO 5XD [facility] Last Admin: 01/19/17 17:34 Dose: 20 gm Lorazepam (Ativan) 0.5 mg PO Q6H PRN PRN Reason: Extreme agitation Last Admin: 01/11/17 01:51 Dose: 0.5 mg Lorazepam (Ativan Inj) 0.5 mg IM Q6H PRN PRN Reason: Extreme agitation Pantoprazole Sodium (Protonix Tab) 40 mg PO ACB [facility] Last Admin: 01/19/17 05:57 Dose: Not Given Rifaximin (Xifaxan) 550 mg PO BID [facility] Last Admin: 01/19/17 09:11 Dose: Not Given Sertraline HCl (Zoloft) 100 mg PO DAILY [facility] Last Admin: 01/19/17 09:11 Dose: Not Given Subjective: Pt seen and chart examined. Nursing reports pt is doing well. Some issues staying asleep last night but has a good appetite. On face to face the pt states he is doing well. He reports his mood is improved and he denies any S/ I. Anxiety well controlled. Tolerating meds. Looking forward to D/C Start Time: 17:15 Stop Time: 17:30 Mental Status Exam Vitals: Last Vital Signs Temp 97.2 F 01/19/17 16:00 Pulse 65 01/19/17 17:30 Resp 20 01/19/17 16:00 BP 119/60 01/19/17 17:30 Pulse Ox 100 01/19/17 17:30 Height: 1.88 m Weight: 140.8 kg - Mental Status Exam Muscle Strength/Tone: Weak Dressing: Casual Grooming: Poor Attitude: Cooperative Motor Activity: Retardation Eye Contact: Fair Speech: Slowed Volume: Soft Rhythm: Appropriate Rhythm Orientation: Oriented X4 Mood: Depressed Rate of Thoughts: Delayed Thought Organization: Organized Associations: Intact Abstract Reasoning: Intact, able to abstract Computation: Intact Thought Content: Helplessness, Worthlessness Perception/Psychotic: Perception Normal Language: Naming Intact Fund of Knowledge: Jose aware current events Memory: Grossly Intact Suicidal Ideation: Denies Homicidal Ideation: None Insight: Fair Judgement: Fair Impulse Control: Fair - Laboratory Result Diagrams: 01/18/17 17:23 01/18/17 09:25 Laboratory Results - last 24 hr 01/18/17 01/18/17 17:23 17:24 WBC 1.3 L* D RBC 3.32 L Hgb 9.8 L D Hct 31.4 L MCV 94.6 MCH 29.5 MCHC 31.2 RDW Std Deviation 62.9 H Plt Count 38 L MPV 10.5 Neutrophils % (Manual) 58.0 Band Neutrophils % 7.0 H Lymphocytes % (Manual) 31.0 Monocytes % (Manual) 2.0 Eosinophils % (Manual) 2.0 Neutrophils # (Manual) 0.8 L Band Neutrophils # 0.1 Lymphocytes # (Manual) 0.4 L Monocytes # (Manual) 0.0 Eosinophils # (Manual) 0.0 Poikilocytosis 2+ Anisocytosis 2+ Tear Drop Cells 1+ Ovalocytes 2+ RBC Morph Comment Abnormal Ammonia 119 H Assessment and Plan (1) Bipolar disorder Qualifiers: Current bipolar episode type: depressed Current episode severity: severe Psychotic features: without psychotic features Problem details: severe depression/suicidal ideation Current visit: Yes Status: Acute Hospital Course Summary Disclaimer: The visit summary below is not to be considered part of the above Progress Note. Hospital Course: 01/10/17 acute encephalopathy secondary to hepatic cirrhosis Check CBC and CMP today. hepatic cirrhosis with elevated ammonia Ammonia level is 116 today. He came to us on lactulose and rifaximin. Will discuss with attending to determine if he needs to continue on both meds. Will follow LFT's Obstructive Sleep Apnea Uses CPAP at home. Will monitor. Patient may require O2 at night if he becomes hypoxic Bipolar II with suicidal ideation Psych to follow. May need to discuss reducing/changing sertraline as use is not recommended in moderate to severe liver impairment chronic venous stasis Wound team has been consulted for evaluation Consider compression stockings if needed pancytopenia secondary to cirrhosis vs meds Will monitor with CBC At time of discharge, medical care will return to patients primary care provider at the [facility] 01/11/17 15:17 Continue to monitor bowel movements-should be having approximately 3 bowel movements daily. Continue rifaximin and lactulose. CBC and CMP tomorrow to follow pancytopenia, renal and liver function ammonia level improved but still elevated 01/11/17 19:13 Continue current care 01/12/17 17:23 Hydroxyzine 50mg PO QHS 01/13/17 11:16 Increase Hydroxyzine to 100mg PO QHS 01/14/17 11:23 D/C Abilify 01/15/17 18:56 Will contact OP provider to discuss WBC and treatment for Bipolar D/O 01/16/17 17:19 Continue current care 01/17/17 18:24 Restart Abilify 5mg daily 01/18/17 Will recheck CBC and BMP this morning to follow pancytopenia, electro-lytes and renal function. Overall Neville has been doing well without significant problems. Will continue to monitor blood pressure as he was slightly low this morning. Continues on lactulose 5 times a day for chronic hepatic encephalopathy Further psychiatric care as per Dr. Cruz, added Abilify Encourage to encourage patient to participate in unit activities and provide a safe environment. 01/18/17 14:50 Will D/C Abilify. 01/19/17 17:50 Continue current care
[2017-01-19 19:25] VITALS: RESP 18
[2017-01-19] MEDS: HydrOXYzine 50 MG TABLET PO SCH (20:03)
[2017-01-19] MEDS: HYDROCORTISONE 1% CREAM 28.35gm TOP PRN (20:34)
[2017-01-20] MEDS: LORazepam 0.5 MG TABLET PO PRN (00:51)
[2017-01-20] MEDS: PANTOPRAZOLE 40 MG TABLET PO SCH (06:04)
[2017-01-20] MEDS: RIFAXIMIN 550 MG TABLET PO SCH ×2 (08:00→20:48)
[2017-01-20] MEDS: SERTRALINE 100 MG TABLET PO SCH (08:00)
[2017-01-20] MEDS: LACTULOSE 20 GM/30 ML ORAL LIQUID PO SCH ×5 (08:00→20:48)
--- NOTE | 2017-01-20 12:03 | Neuropsych Progress Note ---
[facility] Subjective Date: 01/20/17 - Sujective/Severity of Illness Medications: Bisacodyl (Dulcolax) 10 mg RECTALLY DAILY PRN PRN Reason: Constipation Bupropion HCl (Wellbutrin Sr) 300 mg PO SuMoWeFr@1200 [facility] Last Admin: 01/19/17 11:46 Dose: 300 mg Haloperidol (Haldol) 0.5 mg PO Q6H PRN PRN Reason: Extreme agitation Haloperidol Lactate (Haldol) 0.5 mg IM Q6H PRN PRN Reason: Extreme agitation Hydrocortisone (Cortizone-10 Cream) 1 applic TOP TID PRN PRN Reason: Rash Last Admin: 01/19/17 20:34 Dose: 1 applic Hydroxyzine HCl (Atarax) 100 mg PO 2100 [facility] Last Admin: 01/19/17 20:03 Dose: 100 mg Lactulose (Lactulose) 20 gm PO 5XD [facility] Last Admin: 01/20/17 08:00 Dose: 20 gm Lorazepam (Ativan) 0.5 mg PO Q6H PRN PRN Reason: Extreme agitation Last Admin: 01/20/17 00:51 Dose: 0.5 mg Lorazepam (Ativan Inj) 0.5 mg IM Q6H PRN PRN Reason: Extreme agitation Pantoprazole Sodium (Protonix Tab) 40 mg PO ACB [facility] Last Admin: 01/20/17 06:04 Dose: 40 mg Rifaximin (Xifaxan) 550 mg PO BID [facility] Last Admin: 01/20/17 08:00 Dose: 550 mg Sertraline HCl (Zoloft) 100 mg PO DAILY [facility] Last Admin: 01/20/17 08:00 Dose: 100 mg Subjective: Pt seen and chart examined. Nursing reports pt continues to have some issues falling and staying asleep but mood is stable and no behaviors noted. On face to face the pt states he is doing well. Mood continues to improve and he denies any S/I. Anxiety well controlled. Tolerating meds and looking forward to discharge. Start Time: 11:45 Stop Time: 12:00 Mental Status Exam Vitals: Last Vital Signs Temp 97.4 F 01/20/17 08:00 Pulse 66 01/20/17 08:00 Resp 18 01/20/17 08:00 BP 127/67 01/20/17 08:19 Pulse Ox 100 01/20/17 08:00 Height: 1.88 m Weight: 140.8 kg - Mental Status Exam Muscle Strength/Tone: Weak Dressing: Casual Grooming: Poor Attitude: Cooperative Motor Activity: Retardation Eye Contact: Fair Speech: Slowed Volume: Soft Rhythm: Appropriate Rhythm Orientation: Oriented X4 Mood: Depressed Rate of Thoughts: Delayed Thought Organization: Organized Associations: Intact Abstract Reasoning: Intact, able to abstract Computation: Intact Thought Content: Helplessness, Worthlessness Perception/Psychotic: Perception Normal Language: Naming Intact Fund of Knowledge: Jose aware current events Memory: Grossly Intact Suicidal Ideation: Denies Homicidal Ideation: None Insight: Fair Judgement: Fair Impulse Control: Fair - Laboratory Result Diagrams: 01/18/17 17:23 01/18/17 09:25 Assessment and Plan (1) Bipolar disorder Qualifiers: Current bipolar episode type: depressed Current episode severity: severe Psychotic features: without psychotic features Problem details: severe depression/suicidal ideation Current visit: Yes Status: Acute Hospital Course Summary Disclaimer: The visit summary below is not to be considered part of the above Progress Note. Hospital Course: 01/10/17 acute encephalopathy secondary to hepatic cirrhosis Check CBC and CMP today. hepatic cirrhosis with elevated ammonia Ammonia level is 116 today. He came to us on lactulose and rifaximin. Will discuss with attending to determine if he needs to continue on both meds. Will follow LFT's Obstructive Sleep Apnea Uses CPAP at home. Will monitor. Patient may require O2 at night if he becomes hypoxic Bipolar II with suicidal ideation Psych to follow. May need to discuss reducing/changing sertraline as use is not recommended in moderate to severe liver impairment chronic venous stasis Wound team has been consulted for evaluation Consider compression stockings if needed pancytopenia secondary to cirrhosis vs meds Will monitor with CBC At time of discharge, medical care will return to patients primary care provider at the [facility] 01/11/17 15:17 Continue to monitor bowel movements-should be having approximately 3 bowel movements daily. Continue rifaximin and lactulose. CBC and CMP tomorrow to follow pancytopenia, renal and liver function ammonia level improved but still elevated 01/11/17 19:13 Continue current care 01/12/17 17:23 Hydroxyzine 50mg PO QHS 01/13/17 11:16 Increase Hydroxyzine to 100mg PO QHS 01/14/17 11:23 D/C Abilify 01/15/17 18:56 Will contact OP provider to discuss WBC and treatment for Bipolar D/O 01/16/17 17:19 Continue current care 01/17/17 18:24 Restart Abilify 5mg daily 01/18/17 Will recheck CBC and BMP this morning to follow pancytopenia, electro-lytes and renal function. Overall Neville has been doing well without significant problems. Will continue to monitor blood pressure as he was slightly low this morning. Continues on lactulose 5 times a day for chronic hepatic encephalopathy Further psychiatric care as per Dr. Cruz, added Abilify Encourage to encourage patient to participate in unit activities and provide a safe environment. 01/18/17 14:50 Will D/C Abilify. 01/19/17 17:50 Continue current care 01/20/17 12:02 Prepare for D/C tomorrow
--- NOTE | 2017-01-20 12:07 | Discharge Instructions ---
Discharge Plan - Med Rec/Dispo Referrals/Follow Up: Yahaira Mullen APRN [Other] (Yahaira Mullen APRN on 01/31/17 at 1:30 pm for Mental Health follow-up. . [facility] Team 2 on 01/26/17 at 11:30 am for Hosp. follow-up. . [facility] Patient is scheduled for Therapy group at the [facility] on 01/24 @ 11:30 am, 01/26 @ 1: 00 pm and 01/31/17 at 11:30 am. ) Additional Instructions: Reasons for Admission: Bipolar II D/O Discharge Diagnosis: Bipolar II D/O IN CASE OF PSYCHIATRIC EMERGENCY, CONTACT [facility] STAFF AT [phone] ( available 24 hrs. daily). Prescriptions: New Sertraline [Zoloft] 100 mg PO DAILY #30 tablet BuPROPion SR [Wellbutrin Sr] 300 mg PO SuMoWeFr@1200 #30 tablet.er HydrOXYzine [Atarax] 100 mg PO 2100 #30 tablet Discontinued Abilify 15 mg PO DAILY buPROPion HCl [Bupropion HCl Sr] 150 mg PO [id number] Sertraline 200 mg PO DAILY No Action Pantoprazole Tab [Protonix Tab] 1 tab PO ACB Meloxicam 15 mg PO DAILY Lactulose 30 ml PO 5XD Rifaximin 550 mg PO BID Vit D3/Folic Acid/B2/B6/B12 1,000 mg PO DAILY Tramadol [Ultram] 50 mg PO TID PRN PRN Reason: Moderate Pain Discharge Instructions/Outpatient Orders: Criteria for Antipsychotic Use Location: Determined By Patient Final Provider Discharge Instructions Location: Determined By Patient - Disposition 01 Discharged Home, Self-Care
--- NOTE | 2017-01-20 14:41 | Discharge Instructions ---
Discharge Plan - Med Rec/Dispo Referrals/Follow Up: Yahaira Mullen APRN [Other] (Yahaira Mullen APRN on 01/31/17 at 1:30 pm for Mental Health follow-up. . [facility] Team 2 on 01/26/17 at 11:30 am for Hosp. follow-up. . [facility] Patient is scheduled for Therapy group at the [facility] on 01/24 @ 11:30 am, 01/26 @ 1: 00 pm and 01/31/17 at 11:30 am. ) Additional Instructions: Reasons for Admission: Bipolar II D/O Discharge Diagnosis: Bipolar II D/O IN CASE OF PSYCHIATRIC EMERGENCY, CONTACT GENERATIONS STAFF AT [phone] ( available 24 hrs. daily). Prescriptions: New Sertraline [Zoloft] 100 mg PO DAILY #30 tablet BuPROPion SR [Wellbutrin Sr] 300 mg PO SuMoWeFr@1200 #30 tablet.er HydrOXYzine [Atarax] 100 mg PO 2100 #30 tablet Continue Pantoprazole Tab [Protonix Tab] 1 tab PO ACB Lactulose 30 ml PO 5XD Rifaximin 550 mg PO BID Discontinued Abilify 15 mg PO DAILY Meloxicam 15 mg PO DAILY buPROPion HCl [Bupropion HCl Sr] 150 mg PO QMWFSU Sertraline 200 mg PO DAILY Vit D3/Folic Acid/B2/B6/B12 1,000 mg PO DAILY Tramadol [Ultram] 50 mg PO TID PRN PRN Reason: Moderate Pain Discharge Instructions/Outpatient Orders: Criteria for Antipsychotic Use Location: Determined By Patient Final Provider Discharge Instructions Location: Determined By Patient - Disposition 01 Discharged Home, Self-Care
[2017-01-20] MEDS: HydrOXYzine 50 MG TABLET PO SCH (20:48)
[2017-01-20] MEDS: HYDROCORTISONE 1% CREAM 28.35gm TOP PRN (20:49)
[2017-01-20] MEDS: ACETAMINOPHEN 325 MG TABLET PO PRN (23:52)
[2017-01-21] MEDS: PANTOPRAZOLE 40 MG TABLET PO SCH (05:53)
[2017-01-21] MEDS: SERTRALINE 100 MG TABLET PO SCH (08:23)
[2017-01-21] MEDS: LACTULOSE 20 GM/30 ML ORAL LIQUID PO SCH ×2 (08:23→11:45)
[2017-01-21] MEDS: RIFAXIMIN 550 MG TABLET PO SCH (08:23)
[2017-01-21 08:34] VITALS: BP 123/60; PULSE 64; TEMP 97.5; O2SAT 96
[2017-01-21] MEDS: ACETAMINOPHEN 325 MG TABLET PO PRN (08:46)
--- NOTE | 2017-01-21 11:14 | Neuropsych Progress Note ---
[place] Subjective Date: 01/21/17 - Sujective/Severity of Illness Medications: Acetaminophen (Tylenol) 650 mg PO Q5H PRN PRN Reason: pain Last Admin: 01/21/17 08:46 Dose: 650 mg Bisacodyl (Dulcolax) 10 mg RECTALLY DAILY PRN PRN Reason: Constipation Bupropion HCl (Wellbutrin Sr) 300 mg PO SuMoWeFr@1200 [facility] Last Admin: 01/19/17 11:46 Dose: 300 mg Haloperidol (Haldol) 0.5 mg PO Q6H PRN PRN Reason: Extreme agitation Haloperidol Lactate (Haldol) 0.5 mg IM Q6H PRN PRN Reason: Extreme agitation Hydrocortisone (Cortizone-10 Cream) 1 applic TOP TID PRN PRN Reason: Rash Last Admin: 01/20/17 20:49 Dose: 1 applic Hydroxyzine HCl (Atarax) 100 mg PO 2100 [facility] Last Admin: 01/20/17 20:48 Dose: 100 mg Lactulose (Lactulose) 20 gm PO 5XD [facility] Last Admin: 01/21/17 08:23 Dose: 20 gm Lorazepam (Ativan) 0.5 mg PO Q6H PRN PRN Reason: Extreme agitation Last Admin: 01/20/17 00:51 Dose: 0.5 mg Lorazepam (Ativan Inj) 0.5 mg IM Q6H PRN PRN Reason: Extreme agitation Pantoprazole Sodium (Protonix Tab) 40 mg PO ACB [facility] Last Admin: 01/21/17 05:53 Dose: 40 mg Rifaximin (Xifaxan) 550 mg PO BID [facility] Last Admin: 01/21/17 08:23 Dose: 550 mg Sertraline HCl (Zoloft) 100 mg PO DAILY [facility] Last Admin: 01/21/17 08:23 Dose: 100 mg Subjective: Pt seen and chart examined. Nursing reports pt is doing well. Sleeping well and has a good appetite. Mood stable and denies any S/I to staff. On face to face the pt states he is doing well. Mood stable and anxiety controlled. Denies S/I. Tolerating meds. Looking forward to PR Start Time: 10:30 Stop Time: 10:45 Mental Status Exam Vitals: Last Vital Signs Temp 97.5 F 01/21/17 08:00 Pulse 64 01/21/17 08:00 Resp 18 01/21/17 08:00 BP 123/60 01/21/17 08:00 Pulse Ox 96 01/21/17 08:00 Height: 1.88 m Weight: 140.8 kg - Mental Status Exam Muscle Strength/Tone: Weak Dressing: Casual Grooming: Poor Attitude: Cooperative Motor Activity: Retardation Eye Contact: Fair Speech: Slowed Volume: Soft Rhythm: Appropriate Rhythm Orientation: Oriented X4 Mood: Neutral Rate of Thoughts: Appropriate Rate Thought Organization: Organized Associations: Intact Abstract Reasoning: Intact, able to abstract Computation: Intact Thought Content: Normal Perception/Psychotic: Perception Normal Language: Naming Intact Fund of Knowledge: Jose aware current events Memory: Grossly Intact Suicidal Ideation: Denies Homicidal Ideation: None Insight: Fair Judgement: Fair Impulse Control: Good - Laboratory Result Diagrams: 01/18/17 17:23 01/18/17 09:25 Assessment and Plan (1) Bipolar disorder Qualifiers: Current bipolar episode type: depressed Current episode severity: severe Psychotic features: without psychotic features Problem details: severe depression/suicidal ideation Current visit: Yes Status: Acute Hospital Course Summary Disclaimer: The visit summary below is not to be considered part of the above Progress Note. Hospital Course: 01/10/17 acute encephalopathy secondary to hepatic cirrhosis Check CBC and CMP today. hepatic cirrhosis with elevated ammonia Ammonia level is 116 today. He came to us on lactulose and rifaximin. Will discuss with attending to determine if he needs to continue on both meds. Will follow LFT's Obstructive Sleep Apnea Uses CPAP at home. Will monitor. Patient may require O2 at night if he becomes hypoxic Bipolar II with suicidal ideation Psych to follow. May need to discuss reducing/changing sertraline as use is not recommended in moderate to severe liver impairment chronic venous stasis Wound team has been consulted for evaluation Consider compression stockings if needed pancytopenia secondary to cirrhosis vs meds Will monitor with CBC At time of discharge, medical care will return to patients primary care provider at the [facility] 01/11/17 15:17 Continue to monitor bowel movements-should be having approximately 3 bowel movements daily. Continue rifaximin and lactulose. CBC and CMP tomorrow to follow pancytopenia, renal and liver function ammonia level improved but still elevated 01/11/17 19:13 Continue current care 01/12/17 17:23 Hydroxyzine 50mg PO QHS 01/13/17 11:16 Increase Hydroxyzine to 100mg PO QHS 01/14/17 11:23 D/C Abilify 01/15/17 18:56 Will contact OP provider to discuss WBC and treatment for Bipolar D/O 01/16/17 17:19 Continue current care 01/17/17 18:24 Restart Abilify 5mg daily 01/18/17 Will recheck CBC and BMP this morning to follow pancytopenia, electro-lytes and renal function. Overall Neville has been doing well without significant problems. Will continue to monitor blood pressure as he was slightly low this morning. Continues on lactulose 5 times a day for chronic hepatic encephalopathy Further psychiatric care as per Dr. Cruz, added Abilify Encourage to encourage patient to participate in unit activities and provide a safe environment. 01/18/17 14:50 Will D/C Abilify. 01/19/17 17:50 Continue current care 01/20/17 12:02 Prepare for D/C tomorrow 01/21/17 11:14 D/C home
[2017-01-21] MEDS: BuPROPion SR 150mg (12HR) TABLET PO SCH (11:45)
[2017-01-21] MEDS ORDERED: HydrOXYzine 50 MG TABLET PO ONE (12:30)
--- NOTE | 2017-02-15 17:47 | Neuropsychiatric Disch Summary ---
Discharge Information Date of admission: 01/09/17 14:47 Attending Physician: Nahid Escudero MD Primary care physician: Charlene Cohn MD Consults: 01/09/17 16:15 Case Management Consult [CONS] Routine Reason For Exam: H&P and Medical Managment Physician Consult [CONS] Routine Consulting Provider: Cristhian Mercado Reason For Exam: H&P and Medical Managment Ordering Provider has Notified Magnetic Doctor: Yes 01/10/17 05:25 Wound Vein Clinic Consult [CONS] Routine Reason for consultation: Wound to left zamarripa 01/15/17 15:34 Information Consultant Consult [CONS] Routine - Discharge Diagnosis Discharge Diagnosis: Bipolar II - Laboratory Labs: 01/18/17 17:23 01/18/17 09:25 Date of Admission: 01/09/17 14:47 History of Present Illness: Patient is 66-year-old, , who was transferred from [facility] for suicide ideation with plan to overdose on his medication. Patient has history of Bipolar disorder and reports depressive symptoms in the last 2 weeks. He endorses depressed mood, decrease appetite, low energy, poor concentration and recurrent suicide ideation with plan to overdose. He was recently admitted to the [facility] for elevated ammonia and suicide ideation. Patient was stabilized medically prior to transfer and he was seen today to alert and oriented to time, place,person and situation. Patient reports that he stays at home all and has been really bored with his life. There is associated anxiety and always feels on the edge. He had previous suicide attempt about 15 years ago which require hospitalization at the [facility] for months. He reports past hypomanic symptoms which he describes periods of impulsively buying things he does not need with protracted insomnia. Patient reports being hospitalized during these episodes. Patient reports that he has had trials of various medications including [place]etta. He is currently on Abilify 15mg daily, Sertraline 200mg daily and Wellbutrin 150mg BID . Patient denies psychotic symptom and no symptom suggestive of kings or hypomania. Substance: Denies use of alcohol or any illicit drug Past Psych History: Patient was once admitted to [facility] for months. Past Medical History: Liver Cirrhosis Past Surgical History: Appendectomy and Gallbladder surgery Family History: He reports that his mother committed suicide Social History: Patient lives in apartment and retired from the [employer] honorably . 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 Patient has been divorce and has 2 daughters. Hospital Course This is a general summary of the patient's hospital course. For more details refer to the complete medical record. Hospital course: 01/10/17 acute encephalopathy secondary to hepatic cirrhosis Check CBC and CMP today. hepatic cirrhosis with elevated ammonia Ammonia level is 116 today. He came to us on lactulose and rifaximin. Will discuss with attending to determine if he needs to continue on both meds. Will follow LFT's Obstructive Sleep Apnea Uses CPAP at home. Will monitor. Patient may require O2 at night if he becomes hypoxic Bipolar II with suicidal ideation Psych to follow. May need to discuss reducing/changing sertraline as use is not recommended in moderate to severe liver impairment chronic venous stasis Wound team has been consulted for evaluation Consider compression stockings if needed pancytopenia secondary to cirrhosis vs meds Will monitor with CBC At time of discharge, medical care will return to patients primary care provider at the [facility] 01/11/17 15:17 Continue to monitor bowel movements-should be having approximately 3 bowel movements daily. Continue rifaximin and lactulose. CBC and CMP tomorrow to follow pancytopenia, renal and liver function ammonia level improved but still elevated 01/11/17 19:13 Continue current care 01/12/17 17:23 Hydroxyzine 50mg PO QHS 01/13/17 11:16 Increase Hydroxyzine to 100mg PO QHS 01/14/17 11:23 D/C Abilify 01/15/17 18:56 Will contact OP provider to discuss WBC and treatment for Bipolar D/O 01/16/17 17:19 Continue current care 01/17/17 18:24 Restart Abilify 5mg daily 01/18/17 Will recheck CBC and BMP this morning to follow pancytopenia, electro-lytes and renal function. Overall Neville has been doing well without significant problems. Will continue to monitor blood pressure as he was slightly low this morning. Continues on lactulose 5 times a day for chronic hepatic encephalopathy Further psychiatric care as per Dr. Cruz, added Abilify Encourage to encourage patient to participate in unit activities and provide a safe environment. 01/18/17 14:50 Will D/C Abilify. 01/19/17 17:50 Continue current care 01/20/17 12:02 Prepare for D/C tomorrow 01/21/17 11:14 D/C home Time spent with patient: less than 15 minutes Discharge Plan - Med Rec/Dispo Referrals/Follow Up: Yahaira Mullen APRN [Other] (Yahaira Mullen APRN on 01/31/17 at 1:30 pm for Mental Health follow-up. . [facility] Team 2 on 01/26/17 at 11:30 am for Hosp. follow-up. . [facility] Patient is scheduled for Therapy group at the [facility] on 01/24 @ 11:30 am, 01/26 @ 1: 00 pm and 01/31/17 at 11:30 am. ) Additional Instructions: Reasons for Admission: Bipolar II D/O Discharge Diagnosis: Bipolar II D/O IN CASE OF PSYCHIATRIC EMERGENCY, CONTACT GENERATIONS STAFF AT [phone] ( available 24 hrs. daily). Prescriptions: New Sertraline [Zoloft] 100 mg PO DAILY #30 tablet BuPROPion SR [Wellbutrin Sr] 300 mg PO SuMoWeFr@1200 #30 tablet.er HydrOXYzine [Atarax] 100 mg PO 2100 #30 tablet Continue Pantoprazole Tab [Protonix Tab] 1 tab PO ACB Lactulose 30 ml PO 5XD Rifaximin 550 mg PO BID Discontinued Abilify 15 mg PO DAILY Meloxicam 15 mg PO DAILY buPROPion HCl [Bupropion HCl Sr] 150 mg PO QMWFSU Sertraline 200 mg PO DAILY Vit D3/Folic Acid/B2/B6/B12 1,000 mg PO DAILY Tramadol [Ultram] 50 mg PO TID PRN PRN Reason: Moderate Pain Discharge Instructions/Outpatient Orders: Criteria for Antipsychotic Use Location: Determined By Patient Final Provider Discharge Instructions Location: Determined By Patient - Disposition 01 Discharged Home, Self-Care
== END 2017-01-21 13:36 | disposition home or self-care (01) | DRG 885 ==
LOC: GEN 14:47
PROVIDERS: ADMIT Psychiatry & Neurology Psychiatry; ATTEND Psychiatry & Neurology Psychiatry